=== PATIENT | male | born 1950 | race Caucasian/White ===

== ENCOUNTER → 2017-06-04 | Outpatient (CLI) | payer MEDICARE, OTHER ==
[~2017-06-04] VITALS: Ht 188 cm; Wt 127.0 kg
== END | disposition home or self-care (01) ==
LOC: Rad HDHVI 09:31
PROVIDERS: ATTEND Internal Medicine Cardiovascular Disease
DX: I10 Essential (primary) hypertension (principal); E78.00 Pure hypercholesterolemia, unspecified; E11.9 Type 2 diabetes mellitus without complications; Z82.49 Family history of ischemic heart disease and other diseases of the circulatory system
CPT/HCPCS: 78452; 93017; 93306; 96374; A9500

== ENCOUNTER → 2017-12-31 | Outpatient (CLI) | payer MEDICARE, OTHER ==
[~2017-12-31] MED LIST: ASPI-264 PO; CHOL20007 PO; CLOP75TA28 PO; COEN100C15 PO; DEXL60CA3 PO; IRBE300T26 PO; METF-370 PO; NEBI5TAB2 PO; OMEG1CAP59 PO
[2017-12-31 12:36] LABS: Basophils # (auto) 0.1 uL; Basophils % (auto) 0.9 % (0.0-2.0); Eosinophils # (auto) 0.1 uL; Eosinophils % (auto) 2.5 % (0.0-7.0); Hematocrit 48.8 % (41.0-53.0); Hemoglobin 16.6 g/dL (13.5-17.5); Lymphocytes # (auto) 1.4 uL; Lymphocytes % (auto) 23.1 % (10.0-50.0); Mean Corpuscular Hemoglobin 31.9 pg (28.0-32.0); Mean Corpuscular Volume 93.8 fL (80.0-100.0); Monocytes # (auto) 0.7 uL; Neutrophils # (auto) 3.7 uL; Neutrophils % (auto) 62.5 % (37.0-80.0); Nucleated Red Blood Cells % 1.5 %; Platelet Count (auto) 181 10^3/uL (140-450); Red Blood Cells 5.21 10^6/uL (4.5-5.90); Red Cell Distribution Width 15.5 % (11.8-14.3); White Blood Cell 5.9 10^3/uL (4.4-10.8)
[2017-12-31 12:44] LABS: Urine Blood Negative /uL (Negative); Urine Specific Gravity 1.009 (1.001-1.035)
[2017-12-31 13:18] LABS: BUN/Creatinine Ratio 19.4; Bilirubin, Direct 0.1 mg/dL (0-0.2); Bilirubin, Total 0.6 mg/dL (0.2-1.0); Calcium 9.4 mg/dL (8.5-10.1); Potassium 4.2 mmol/L (3.5-5.1); Total Protein 8.8 g/dL (6.4-8.2)
[2017-12-31 20:13] LABS: Prostate Specific Antigen 1.62 ng/mL (0.0-4.0)
[2017-12-31 20:25] LABS: Free T4 (Free Thyroxine) 1.04 ng/dL (0.89-1.76)
== END | disposition home or self-care (01) ==
LOC: LAB 08:06
PROVIDERS: ATTEND Internal Medicine Cardiovascular Disease
DX: E78.00 Pure hypercholesterolemia, unspecified (principal); D64.9 Anemia, unspecified; E11.9 Type 2 diabetes mellitus without complications; E03.9 Hypothyroidism, unspecified; E55.9 Vitamin D deficiency, unspecified; R53.81 Other malaise; R97.20 Elevated prostate specific antigen [PSA]; D51.9 Vitamin B12 deficiency anemia, unspecified; N39.0 Urinary tract infection, site not specified; I10 Essential (primary) hypertension; K74.1 Hepatic sclerosis
CPT/HCPCS: 36415; 80048; 80061; 80076; 81003; 82306; 82607; 83036; 84153; 84403; 84439; 84443; 85025

== ENCOUNTER → 2018-01-08 | Outpatient (CLI) | payer MEDICARE, OTHER ==
[2018-01-08 10:05] VITALS: BP 147/85
[2018-01-08 10:30] VITALS: BP 140/84
[2018-01-08 12:08] LABS: Basophils # (auto) 0 uL; Basophils % (auto) 0.8 % (0.0-2.0); Eosinophils # (auto) 0.1 uL; Hematocrit 49.9 % (41.0-53.0); Hemoglobin 16.8 g/dL (13.5-17.5); Lymphocytes # (auto) 1.3 uL; Lymphocytes % (auto) 21.8 % (10.0-50.0); Mean Corpuscular Hemoglobin 31.8 pg (28.0-32.0); Mean Corpuscular Hgb Conc. 33.6 g/dL (32.0-36.0); Mean Corpuscular Volume 94.5 fL (80.0-100.0); Monocytes # (auto) 0.6 uL; Monocytes % (auto) 10.8 % (0.0-12.0); Neutrophils # (auto) 3.9 uL; Neutrophils % (auto) 64.6 % (37.0-80.0); Nucleated Red Blood Cells % 0.8 %; Platelet Count (auto) 164 10^3/uL (140-450); Red Blood Cells 5.28 10^6/uL (4.5-5.90); Red Cell Distribution Width 15.3 % (11.8-14.3)
[2018-01-08 12:14] LABS: INR 1.01 (0.9-1.15); Partial Thromboplastin Time 30.5 sec (22.64-33.71)
[2018-01-08 12:37] LABS: Potassium 3.9 mmol/L (3.5-5.1)
[2018-01-08 12:38] LABS: Calcium 8.8 mg/dL (8.5-10.1)
== END | disposition home or self-care (01) ==
LOC: Rad HDHVI 09:45
PROVIDERS: ATTEND Internal Medicine Cardiovascular Disease
DX: Z01.818 Encounter for other preprocedural examination (principal); I10 Essential (primary) hypertension; D64.9 Anemia, unspecified; R79.1 Abnormal coagulation profile
CPT/HCPCS: 36415; 71046; 80048; 85025; 85610; 85730; 93005; G0463

== ENCOUNTER 2018-01-12 10:40 | Inpatient (IN) | payer MEDICARE, OTHER ==
[~2018-01-12] VITALS: Ht 188 cm; Wt 131.0 kg
[~2018-01-12 10:40] MED LIST changes: -CHOL20007 PO
[2018-01-12] MEDS ORDERED: IOHEXOL 350 MG/ML 100ML IJ ONE (11:14)
[2018-01-12] MEDS ORDERED: LIDOCAINE HCL 2 %PF INJ 10ML AMP IJ ONE ×2 (11:16)
[2018-01-12] MEDS ORDERED: fentaNYL CITRATE 100 MCG/2 ML VL ONE (12:27)
[2018-01-12] MEDS ORDERED: ANGIOMAX 250 MG VIAL IV ONE (12:27)
[2018-01-12] MEDS ORDERED: MIDAZOLAM HCL 1MG/1ML-2 ML VIAL ONE (12:27)
[2018-01-12] MEDS ORDERED: SODIUM CHL 0.9% 0 ML ONE (12:27)
[2018-01-12] MEDS ORDERED: HEPARIN SODIUM (PORCINE) 5000 UNITS/ML 1ML VIAL ONE (13:08)
[2018-01-12] MEDS ORDERED: HEPARIN DRIP/D5W 100UNITS/ML 250 ML IV SCH (13:18)
[2018-01-12] MEDS ORDERED: ONDANSETRON HCL 4 MG/2 ML VIAL IV PRN (13:45)
[2018-01-12] MEDS ORDERED: NITROGLYCERIN 0.4 MG SL TAB SL PRN (13:45)
[2018-01-12] MEDS ORDERED: MORPHINE SULFATE 4 MG/ML SYR/VIAL IV PRN (13:45)
[2018-01-12] MEDS ORDERED: ACETAMINOPHEN 500 MG TAB PO PRN (13:45)
[2018-01-12] MEDS ORDERED: HYDROcodone-ACET 5/325MG TAB PO PRN (13:45)
[2018-01-12 14:01] LABS: Basophils # (auto) 0.1 uL; Basophils % (auto) 1.2 % (0.0-2.0); Eosinophils # (auto) 0.2 uL; Eosinophils % (auto) 2.2 % (0.0-7.0); Hematocrit 46.9 % (41.0-53.0); Lymphocytes # (auto) 1.5 uL; Lymphocytes % (auto) 21.2 % (10.0-50.0); Mean Corpuscular Hgb Conc. 34.1 g/dL (32.0-36.0); Monocytes # (auto) 0.7 uL; Monocytes % (auto) 9.9 % (0.0-12.0); Neutrophils # (auto) 4.6 uL; Neutrophils % (auto) 65.5 % (37.0-80.0); Nucleated Red Blood Cells % 0.2 %; Platelet Count (auto) 151 10^3/uL (140-450); Red Blood Cells 4.99 10^6/uL (4.5-5.90); Red Cell Distribution Width 14.9 % (11.8-14.3)
[2018-01-12] MEDS ORDERED: HEPARIN DRIP/D5W 100UNITS/ML 250 ML IV ONE (14:08)
[2018-01-12] MEDS: SODIUM CHLOR 0.9% PF (SALINE LOCK) 10ML VIAL IV SCH ×2 (14:16→22:28)
[2018-01-12 14:23] LABS: INR 1.05 (0.9-1.15); Prothrombin Time 11.5 sec (9.37-12.3)
[2018-01-12 14:26] LABS: Partial Thromboplastin Time 77.9 sec (22.64-33.71)
[2018-01-12 17:00] VITALS: BP 129/75
[2018-01-12] MEDS ORDERED: DEXTROSE (50%) 50ML SYRG IV PRN (18:15)
[2018-01-12 20:11] LABS: INR 1.01 (0.9-1.15); Partial Thromboplastin Time 35.9 sec (22.64-33.71)
[2018-01-12] MEDS: HEPARIN DRIP/D5W 100UNITS/ML 250 ML IV SCH (20:29)
[2018-01-12 21:40] VITALS: BP 115/69
[2018-01-12] MEDS: InsuLIN REG 1unit/0.01ml Soln (100units/ml) SC SCH (22:00)
[2018-01-12] MEDS: ACCU-CHEK COMFORT CURVE STRIP VI SCH (22:28)
[2018-01-13 03:32] LABS: INR 0.98 (0.9-1.15); Partial Thromboplastin Time 39.8 sec (22.64-33.71); Prothrombin Time 10.7 sec (9.37-12.3)
[2018-01-13 05:30] VITALS: BP 112/71
[2018-01-13] MEDS: InsuLIN REG 1unit/0.01ml Soln (100units/ml) SC SCH ×4 (05:41→21:21)
[2018-01-13] MEDS: ACCU-CHEK COMFORT CURVE STRIP VI SCH ×4 (05:41→21:22)
[2018-01-13] MEDS: SODIUM CHLOR 0.9% PF (SALINE LOCK) 10ML VIAL IV SCH ×3 (05:41→21:21)
[2018-01-13 09:00] VITALS: BP 114/64
[2018-01-13] MEDS: LOSARTAN POTASSIUM 50 MG TAB PO SCH (09:34)
[2018-01-13] MEDS: PANTOPRAZOLE 40 MG TAB PO SCH (09:34)
[2018-01-13] MEDS ORDERED: PATIENTS OWN MEDICATION (Dexlansoprazole (Dexilant) 60 MG) PO SCH (10:00)
[2018-01-13] MEDS ORDERED: IRBESARTAN PO SCH (10:00)
[2018-01-13 10:05] LABS: INR 1.02 (0.9-1.15); Partial Thromboplastin Time 45.2 sec (22.64-33.71); Prothrombin Time 11.1 sec (9.37-12.3)
[2018-01-13 13:00] VITALS: BP 132/73
[2018-01-13 17:05] VITALS: BP 115/63
[2018-01-13] MEDS: HEPARIN DRIP/D5W 100UNITS/ML 250 ML IV SCH ×2 (17:30→19:09)
[2018-01-13 18:30] LABS: Partial Thromboplastin Time 30.2 sec (22.64-33.71); Prothrombin Time 10.9 sec (9.37-12.3)
[2018-01-13] MEDS ORDERED: HEPARIN SODIUM (PORCINE) 5000 UNITS/ML 1ML VIAL IV ONE (18:55)
[2018-01-13 22:00] VITALS: BP 119/71
[2018-01-14 01:10] LABS: INR 1.02 (0.9-1.15); Partial Thromboplastin Time 63.6 sec (22.64-33.71); Prothrombin Time 11.1 sec (9.37-12.3)
[2018-01-14 04:52] VITALS: BP 114/62
[2018-01-14 05:28] LABS: Basophils # (auto) 0 uL; Basophils % (auto) 0.7 % (0.0-2.0); Eosinophils # (auto) 0.2 uL; Eosinophils % (auto) 2.8 % (0.0-7.0); Hematocrit 48.9 % (41.0-53.0); Hemoglobin 16.6 g/dL (13.5-17.5); Lymphocytes # (auto) 1.5 uL; Lymphocytes % (auto) 21.7 % (10.0-50.0); Mean Corpuscular Hgb Conc. 33.8 g/dL (32.0-36.0); Mean Corpuscular Volume 94.5 fL (80.0-100.0); Monocytes # (auto) 0.8 uL; Monocytes % (auto) 11.8 % (0.0-12.0); Neutrophils # (auto) 4.4 uL; Nucleated Red Blood Cells % 0.1 %; Platelet Count (auto) 158 10^3/uL (140-450); Red Blood Cells 5.18 10^6/uL (4.5-5.90)
[2018-01-14 05:41] LABS: INR 1.04 (0.9-1.15); Partial Thromboplastin Time 56.2 sec (22.64-33.71); Prothrombin Time 11.3 sec (9.37-12.3)
[2018-01-14] MEDS: SODIUM CHLOR 0.9% PF (SALINE LOCK) 10ML VIAL IV SCH ×3 (05:42→21:50)
[2018-01-14 05:50] LABS: Calcium 8.7 mg/dL (8.5-10.1); Potassium 3.9 mmol/L (3.5-5.1)
[2018-01-14] MEDS: InsuLIN REG 1unit/0.01ml Soln (100units/ml) SC SCH ×4 (06:41→21:50)
[2018-01-14] MEDS: ACCU-CHEK COMFORT CURVE STRIP VI SCH ×4 (06:42→21:50)
[2018-01-14] MEDS: HEPARIN DRIP/D5W 100UNITS/ML 250 ML IV SCH (08:57)
[2018-01-14 09:00] VITALS: BP 124/73
[2018-01-14] MEDS: LOSARTAN POTASSIUM 50 MG TAB PO SCH (10:10)
[2018-01-14] MEDS: PANTOPRAZOLE 40 MG TAB PO SCH (10:11)
[2018-01-14 12:23] LABS: INR 1.03 (0.9-1.15); Partial Thromboplastin Time 57.9 sec (22.64-33.71); Prothrombin Time 11.2 sec (9.37-12.3)
[2018-01-14 13:00] VITALS: BP 128/70
[2018-01-14] MEDS ORDERED: CHOL20007 PO (13:19)
[2018-01-14 22:00] VITALS: BP 104/63
[2018-01-15] MEDS: HEPARIN DRIP/D5W 100UNITS/ML 250 ML IV SCH (00:08)
[2018-01-15 05:00] VITALS: BP 105/67
[2018-01-15] MEDS: SODIUM CHLOR 0.9% PF (SALINE LOCK) 10ML VIAL IV SCH ×3 (06:30→22:18)
[2018-01-15] MEDS: ACCU-CHEK COMFORT CURVE STRIP VI SCH ×4 (06:31→22:18)
[2018-01-15] MEDS: InsuLIN REG 1unit/0.01ml Soln (100units/ml) SC SCH ×4 (06:31→22:00)
[2018-01-15 09:00] VITALS: BP 129/80
[2018-01-15] MEDS: LOSARTAN POTASSIUM 50 MG TAB PO SCH (10:04)
[2018-01-15] MEDS: PANTOPRAZOLE 40 MG TAB PO SCH (10:04)
[2018-01-15 12:41] LABS: INR 1.02 (0.9-1.15); Partial Thromboplastin Time 54.7 sec (22.64-33.71); Prothrombin Time 11.1 sec (9.37-12.3)
[2018-01-15 13:00] VITALS: BP 142/81
[2018-01-15 17:00] VITALS: BP 125/77
[2018-01-15 22:00] VITALS: BP 117/68
[2018-01-16 06:09] VITALS: BP 115/66
[2018-01-16] MEDS: ACCU-CHEK COMFORT CURVE STRIP VI SCH ×4 (06:34→21:30)
[2018-01-16] MEDS: SODIUM CHLOR 0.9% PF (SALINE LOCK) 10ML VIAL IV SCH ×3 (06:34→22:00)
[2018-01-16] MEDS: InsuLIN REG 1unit/0.01ml Soln (100units/ml) SC SCH ×4 (06:34→21:30)
[2018-01-16] MEDS: HEPARIN DRIP/D5W 100UNITS/ML 250 ML IV SCH ×2 (06:48→21:24)
[2018-01-16 09:00] VITALS: BP 111/71
[2018-01-16] MEDS: PANTOPRAZOLE 40 MG TAB PO SCH (09:52)
[2018-01-16] MEDS: LOSARTAN POTASSIUM 50 MG TAB PO SCH (09:52)
[2018-01-16 13:00] VITALS: BP 140/80
[2018-01-16 13:50] LABS: INR 1.04 (0.9-1.15); Partial Thromboplastin Time 68.6 sec (22.64-33.71); Prothrombin Time 11.3 sec (9.37-12.3)
[2018-01-16 17:00] VITALS: BP 114/84
[2018-01-16] MEDS: FERROUS SULFATE 325 MG TAB PO SCH (17:41)
[2018-01-16 22:00] VITALS: BP 131/75
[2018-01-17 05:00] VITALS: BP 119/70
[2018-01-17] MEDS: SODIUM CHLOR 0.9% PF (SALINE LOCK) 10ML VIAL IV SCH ×3 (06:00→22:18)
[2018-01-17 06:38] LABS: Basophils # (auto) 0.1 uL; Basophils % (auto) 0.9 % (0.0-2.0); Eosinophils # (auto) 0.1 uL; Eosinophils % (auto) 2.2 % (0.0-7.0); Hemoglobin 16.4 g/dL (13.5-17.5); Lymphocytes # (auto) 1.7 uL; Lymphocytes % (auto) 25.1 % (10.0-50.0); Mean Corpuscular Hemoglobin 32.3 pg (28.0-32.0); Mean Corpuscular Hgb Conc. 34.2 g/dL (32.0-36.0); Mean Corpuscular Volume 94.5 fL (80.0-100.0); Monocytes # (auto) 0.8 uL; Monocytes % (auto) 12.2 % (0.0-12.0); Neutrophils # (auto) 4.1 uL; Neutrophils % (auto) 59.6 % (37.0-80.0); Nucleated Red Blood Cells % 0.1 %; Platelet Count (auto) 147 10^3/uL (140-450); Red Blood Cells 5.08 10^6/uL (4.5-5.90); White Blood Cell 6.8 10^3/uL (4.4-10.8)
[2018-01-17] MEDS: ACCU-CHEK COMFORT CURVE STRIP VI SCH ×4 (06:41→22:18)
[2018-01-17] MEDS: InsuLIN REG 1unit/0.01ml Soln (100units/ml) SC SCH ×4 (06:41→22:00)
[2018-01-17 07:12] LABS: Albumin 3.7 g/dL (3.4-5.0); BUN/Creatinine Ratio 17.3; Bilirubin, Total 0.6 mg/dL (0.2-1.0); Calcium 8.5 mg/dL (8.5-10.1); Potassium 3.9 mmol/L (3.5-5.1)
[2018-01-17] MEDS: FERROUS SULFATE 325 MG TAB PO SCH ×2 (08:10→18:08)
[2018-01-17 09:10] VITALS: BP 114/75
[2018-01-17] MEDS: LOSARTAN POTASSIUM 50 MG TAB PO SCH (09:57)
[2018-01-17] MEDS: PANTOPRAZOLE 40 MG TAB PO SCH (09:57)
[2018-01-17] MEDS: HEPARIN DRIP/D5W 100UNITS/ML 250 ML IV SCH (11:12)
[2018-01-17 11:43] LABS: INR 1.03 (0.9-1.15); Partial Thromboplastin Time 60.1 sec (22.64-33.71); Prothrombin Time 11.2 sec (9.37-12.3)
[2018-01-17 13:00] VITALS: BP 127/83
[2018-01-17 17:08] VITALS: BP 127/75
[2018-01-17 22:24] VITALS: BP 105/72
[2018-01-18] MEDS: HEPARIN DRIP/D5W 100UNITS/ML 250 ML IV SCH ×2 (02:07→21:31)
[2018-01-18 05:26] VITALS: BP 104/70
[2018-01-18] MEDS: InsuLIN REG 1unit/0.01ml Soln (100units/ml) SC SCH ×4 (06:15→21:28)
[2018-01-18] MEDS: ACCU-CHEK COMFORT CURVE STRIP VI SCH ×4 (06:15→21:28)
[2018-01-18] MEDS: SODIUM CHLOR 0.9% PF (SALINE LOCK) 10ML VIAL IV SCH ×3 (06:15→21:27)
[2018-01-18 08:00] VITALS: BP 126/77
[2018-01-18 08:11] LABS: Basophils # (auto) 0.1 uL; Basophils % (auto) 0.8 % (0.0-2.0); Eosinophils # (auto) 0.2 uL; Eosinophils % (auto) 2.5 % (0.0-7.0); Hematocrit 49.9 % (41.0-53.0); Hemoglobin 17.1 g/dL (13.5-17.5); Lymphocytes # (auto) 1.7 uL; Lymphocytes % (auto) 24.5 % (10.0-50.0); Mean Corpuscular Hemoglobin 32.3 pg (28.0-32.0); Mean Corpuscular Hgb Conc. 34.3 g/dL (32.0-36.0); Mean Corpuscular Volume 94.1 fL (80.0-100.0); Monocytes # (auto) 0.9 uL; Monocytes % (auto) 12.4 % (0.0-12.0); Neutrophils # (auto) 4.1 uL; Neutrophils % (auto) 59.8 % (37.0-80.0); Nucleated Red Blood Cells % 0.1 %; Platelet Count (auto) 162 10^3/uL (140-450); Red Cell Distribution Width 14.7 % (11.8-14.3); White Blood Cell 6.9 10^3/uL (4.4-10.8)
[2018-01-18] MEDS: FERROUS SULFATE 325 MG TAB PO SCH ×2 (08:11→19:08)
[2018-01-18 08:20] LABS: INR 1.05 (0.9-1.15); Partial Thromboplastin Time 67.8 sec (22.64-33.71); Prothrombin Time 11.5 sec (9.37-12.3)
[2018-01-18 08:36] LABS: Albumin 3.8 g/dL (3.4-5.0); BUN/Creatinine Ratio 17.8; Bilirubin, Total 0.6 mg/dL (0.2-1.0); Calcium 8.7 mg/dL (8.5-10.1); Total Protein 8.4 g/dL (6.4-8.2)
[2018-01-18] MEDS: PANTOPRAZOLE 40 MG TAB PO SCH (09:49)
[2018-01-18] MEDS: LOSARTAN POTASSIUM 50 MG TAB PO SCH (09:50)
[2018-01-18 10:33] LABS: Urine Bacteria NONE SEEN /hpf (None Seen); Urine Blood Negative /uL (Negative); Urine Specific Gravity 1.007 (1.001-1.035); Urine WBC None Seen /hpf (0 - 3)
[2018-01-18 12:00] VITALS: BP 134/73
[2018-01-18] MEDS ORDERED: LIDOCAINE HCL 2 %PF INJ 10ML AMP IJ ONE (15:11)
[2018-01-18] MEDS ORDERED: MIDAZOLAM HCL 1MG/1ML-2 ML VIAL ONE (15:24)
[2018-01-18] MEDS ORDERED: fentaNYL CITRATE 100 MCG/2 ML VL ONE (15:24)
[2018-01-18 15:39] LABS: INR 1.04 (0.9-1.15); Partial Thromboplastin Time 48.2 sec (22.64-33.71); Prothrombin Time 11.3 sec (9.37-12.3)
[2018-01-18] MEDS ORDERED: ASCORBIC ACID 500 MG TAB PO ONE (22:00)
[2018-01-19] VITALS (42 sets, daily range): BP systolic 20–143; BP diastolic 7–73
[2018-01-19] MEDS ORDERED: CHLORHEXIDINE 4% TOPICAL soln 237ML TOP ONE (01:14)
[2018-01-19] MEDS ORDERED: CHLORHEXIDINE 4% TOPICAL soln 118ML TOP ONE (02:30)
[2018-01-19 04:15] LABS: Basophils # (auto) 0 uL; Basophils % (auto) 0.6 % (0.0-2.0); Eosinophils # (auto) 0.1 uL; Eosinophils % (auto) 1.8 % (0.0-7.0); Hematocrit 49.5 % (41.0-53.0); Hemoglobin 16.7 g/dL (13.5-17.5); Lymphocytes # (auto) 1.7 uL; Lymphocytes % (auto) 22.7 % (10.0-50.0); Mean Corpuscular Hemoglobin 32.1 pg (28.0-32.0); Mean Corpuscular Hgb Conc. 33.7 g/dL (32.0-36.0); Mean Corpuscular Volume 95.1 fL (80.0-100.0); Monocytes # (auto) 0.9 uL; Monocytes % (auto) 11.5 % (0.0-12.0); Neutrophils # (auto) 4.9 uL; Neutrophils % (auto) 63.4 % (37.0-80.0); Platelet Count (auto) 152 10^3/uL (140-450); Red Blood Cells 5.21 10^6/uL (4.5-5.90); Red Cell Distribution Width 14.8 % (11.8-14.3); White Blood Cell 7.7 10^3/uL (4.4-10.8)
[2018-01-19 04:39] LABS: Calcium 8.4 mg/dL (8.5-10.1)
[2018-01-19] MEDS ORDERED: CHLORHEXIDINE 0.12% ORAL rinse 473ML MT ONE (06:00)
[2018-01-19] MEDS: SODIUM CHLOR 0.9% PF (SALINE LOCK) 10ML VIAL IV SCH (06:18)
[2018-01-19] MEDS ORDERED: VANCOMYCIN 1GM/250ML 250 ML IV ONE ×3 (06:25→07:30)
[2018-01-19] MEDS: ACCU-CHEK COMFORT CURVE STRIP VI SCH ×9 (06:47→22:56)
[2018-01-19] MEDS: InsuLIN REG 1unit/0.01ml Soln (100units/ml) SC SCH (06:48)
[2018-01-19] MEDS ORDERED: HEPARIN 1,000 UNITS/ml 1ML VIAL ONE (07:00)
[2018-01-19] MEDS ORDERED: ACCU-CHEK COMFORT CURVE STRIP VI ONE (07:00)
[2018-01-19] MEDS ORDERED: PAPAVERINE HCL 60 MG/2 ML 2ML VIAL ONE (07:00)
[2018-01-19] MEDS ORDERED: ceFAZolin 1GM VL ONE (07:00)
[2018-01-19] MEDS ORDERED: BACITRACIN INJ 50000 UNIT VIAL ONE ×2 (07:02→14:36)
[2018-01-19] MEDS ORDERED: MIDAZOLAM HCL 1MG/1ML-2 ML VIAL ONE (07:20)
[2018-01-19] MEDS ORDERED: fentaNYL CITRATE 100 MCG/2 ML VL ONE (07:20)
[2018-01-19] MEDS ORDERED: AZTREONAM 1GM INJ 1 GM in D5W 5% 50 ML IV ONE (07:30)
[2018-01-19] MEDS ORDERED: PLASMA-LYTE A pH7.4 8,000 ML INJ ONE (07:53)
[2018-01-19] MEDS ORDERED: AMINOCAPROIC ACID 5 GM in SODIUM CHL 0.9% 250 ML IV ONE (08:30)
[2018-01-19] MEDS ORDERED: NOREPINEPHRINE BITARTRATE IV ONE (08:30)
[2018-01-19] MEDS ORDERED: VASOPRESSIN 50 UNITS in SODIUM CHL 0.9% 247.5 ML IV ONE (08:30)
[2018-01-19] MEDS ORDERED: AMINOCAPROIC ACID 10 GM in SODIUM CHL 0.9% 100 ML IV ONE (08:30)
[2018-01-19] MEDS ORDERED: HEPARIN 30000 UNITS in SODIUM CHLORIDE 0.9% 1000 ML IV ONE (08:30)
[2018-01-19] MEDS ORDERED: D5W 5% IV ONE ×2 (08:30→13:29)
[2018-01-19] MEDS ORDERED: InsuLIN R (HUMAN) 100 UNITS in SODIUM CHL 0.9% 99 ML IV ONE (08:30)
[2018-01-19] MEDS ORDERED: EPINEPHrine HCL 4 MG in D5W 5% 250 ML IV ONE (08:30)
[2018-01-19] MEDS ORDERED: PHENYLEPHRINE INJ 20 MG in SODIUM CHL 0.9% 250 ML IV ONE (08:30)
[2018-01-19] MEDS ORDERED: D5W 5% 100 ML BAG IV ONE (13:29)
[2018-01-19] MEDS ORDERED: AMIODARONE IV ONE (13:29)
[2018-01-19] MEDS ORDERED: [UNRECOGNIZED DRUG - OTHER] IV ONE (13:29)
[2018-01-19] MEDS ORDERED: AMIODARONE HCL (50 MG/ ML) 3 ML VIAL IV ONE (13:29)
[2018-01-19] MEDS ORDERED: PHENYLEPHRINE IV ONE (13:29)
[2018-01-19 14:30] LABS: Basophils # (auto) 0.1 uL; Basophils % (auto) 0.5 % (0.0-2.0); Eosinophils # (auto) 0.1 uL; Eosinophils % (auto) 0.4 % (0.0-7.0); Hematocrit 37.8 % (41.0-53.0); Hemoglobin 12.7 g/dL (13.5-17.5); Lymphocytes # (auto) 2.4 uL; Lymphocytes % (auto) 10.7 % (10.0-50.0); Mean Corpuscular Hemoglobin 31.6 pg (28.0-32.0); Mean Corpuscular Hgb Conc. 33.6 g/dL (32.0-36.0); Monocytes # (auto) 1.6 uL; Neutrophils # (auto) 18.2 uL; Neutrophils % (auto) 81.4 % (37.0-80.0); Platelet Count (auto) 104 10^3/uL (140-450); Red Blood Cells 4.02 10^6/uL (4.5-5.90); Red Cell Distribution Width 14.6 % (11.8-14.3); White Blood Cell 22.4 10^3/uL (4.4-10.8)
[2018-01-19 14:40] LABS: Albumin 4.6 g/dL (3.4-5.0); BUN/Creatinine Ratio 12.6; Bilirubin, Total 1.1 mg/dL (0.2-1.0); Calcium 8.4 mg/dL (8.5-10.1); Total Protein 7.3 g/dL (6.4-8.2)
[2018-01-19 14:48] LABS: INR 2.33 (0.9-1.15)
[2018-01-19] MEDS ORDERED: INSULIN DRIP 100 UNIT/100ML 100 ML IV SCH (15:03)
[2018-01-19] MEDS ORDERED: NITROGLYCERIN 50MG/250ML 250 ML IV SCH (15:04)
[2018-01-19] MEDS: SODIUM CHLORIDE 0.9% 500 ML IV SCH ×2 (15:04→20:25)
[2018-01-19] MEDS: NICARDIPINE 25MG/250ML BAG KIT 250 ML IV SCH ×2 (15:04→20:04)
[2018-01-19] MEDS: PHENYLEPHRINE IV 250 ML IV SCH (15:04)
[2018-01-19 15:06] LABS: Partial Thromboplastin Time > 170.00 sec (22.64-33.71)
[2018-01-19] MEDS ORDERED: AMIODARONE HCL 900 MG in DEXTROSE 500 ML IV SCH (15:14)
[2018-01-19] MEDS ORDERED: ZOLPIDEM TARTRATE 5 MG TAB PO PRN (15:15)
[2018-01-19] MEDS ORDERED: ALBUMIN 5% 250 ML IV PRN (15:15)
[2018-01-19] MEDS ORDERED: DEXTROSE (50%) 50ML SYRG IV PRN (15:15)
[2018-01-19] MEDS ORDERED: CALCIUM GLUC 4.65meq/50ml D5AE 50 ML IV PRN (15:15)
[2018-01-19] MEDS ORDERED: METOCLOPRAMIDE HCL 5MG/ml INJ 2ml VIAL IV PRN (15:15)
[2018-01-19] MEDS ORDERED: ONDANSETRON HCL 4 MG/2 ML VIAL IV PRN (15:15)
[2018-01-19] MEDS ORDERED: ALBUMIN 25% 50 ML IV PRN (15:15)
[2018-01-19] MEDS ORDERED: AZTREONAM 1GM INJ 1 GM in D5W 5% 50 ML IV SCH (15:15)
[2018-01-19] MEDS ORDERED: SODIUM BICARBONATE 8.4% INJ 50ML SYRINGE IV PRN (15:15)
[2018-01-19] MEDS ORDERED: MORPHINE SULFATE 4 MG/ML SYR/VIAL IV PRN ×2 (15:15)
[2018-01-19] MEDS ORDERED: MAGNESIUM SULFATE 1GM/100ML 100 ML IV PRN (15:15)
[2018-01-19] MEDS ORDERED: FUROSEMIDE 20 MG/2 ML VIAL IV PRN (15:15)
[2018-01-19] MEDS ORDERED: AMIODARONE HCL 150 MG in D5W 5% 100 ML IV ONE (15:15)
[2018-01-19] MEDS: PROPOFOL 100 ML IV SCH ×2 (15:20→20:25)
[2018-01-19 15:51] LABS: Phosphorus 1.7 mg/dL (2.5-4.90)
[2018-01-19 15:57] LABS: Magnesium 5.5 mg/dL (1.6-2.6)
[2018-01-19] MEDS: SODIUM CHLORIDE 0.9% 1,000 ML IV SCH (16:00)
[2018-01-19 17:24] LABS: Basophils # (auto) 0.1 uL; Basophils % (auto) 0.5 % (0.0-2.0); Eosinophils # (auto) 0 uL; Eosinophils % (auto) 0.2 % (0.0-7.0); Hematocrit 41.8 % (41.0-53.0); Hemoglobin 14.2 g/dL (13.5-17.5); Lymphocytes # (auto) 0.6 uL; Lymphocytes % (auto) 3.5 % (10.0-50.0); Mean Corpuscular Hemoglobin 31.8 pg (28.0-32.0); Mean Corpuscular Hgb Conc. 33.9 g/dL (32.0-36.0); Mean Corpuscular Volume 93.9 fL (80.0-100.0); Monocytes # (auto) 1.4 uL; Neutrophils # (auto) 14.9 uL; Neutrophils % (auto) 87.8 % (37.0-80.0); Platelet Count (auto) 108 10^3/uL (140-450); Red Blood Cells 4.46 10^6/uL (4.5-5.90); Red Cell Distribution Width 14.6 % (11.8-14.3)
[2018-01-19 17:38] LABS: Albumin 4.8 g/dL (3.4-5.0); Calcium 8.4 mg/dL (8.5-10.1); Magnesium 3.7 mg/dL (1.6-2.6)
[2018-01-19] MEDS: VANCOMYCIN 1GM/250ML 250 ML IV SCH (17:39)
[2018-01-19 17:40] LABS: BUN/Creatinine Ratio 12.7; Bilirubin, Total 1.8 mg/dL (0.2-1.0); Total Protein 7.6 g/dL (6.4-8.2)
[2018-01-19] MEDS: IPRATROPIUM BROM 0.5 MG/2.5ML INH SOL NEB SCH ×2 (18:00→21:54)
[2018-01-19 18:06] LABS: INR 1.05 (0.9-1.15); Partial Thromboplastin Time 25.6 sec (22.64-33.71); Prothrombin Time 11.4 sec (9.37-12.3)
[2018-01-19] MEDS: POTASSIUM CHL 20MEQ/100ML 100 ML IV PRN (18:13)
[2018-01-19] MEDS: POTASSIUM CHL 20MEQ/100ML 100 ML IV SCH ×4 (18:15→22:56)
[2018-01-19] MEDS ORDERED: SODIUM BICARBONATE 8.4 % INJ 50ML VIAL IV ONE (18:34)
[2018-01-19] MEDS ORDERED: ADENOSINE 6 MG/2 ML INJ IV ONE (18:34)
[2018-01-19] MEDS ORDERED: MANNITOL 20 % (20GM/100ML) SOLN 500ML IV ONE (18:34)
[2018-01-19] MEDS ORDERED: POTASSIUM CHL 2MEQ/ML 20ML IV ONE (18:34)
[2018-01-19] MEDS ORDERED: PHENYLEPHRINE HCL 10 MG/ML VL IV ONE (18:34)
[2018-01-19] MEDS ORDERED: LIDOCAINE HCL 100 MG/5ML (2%) SYRG INJ IV ONE (18:34)
[2018-01-19] MEDS ORDERED: CALCIUM CHLOR(10%) 100MG/ML 10ML SYRINGE IV ONE (18:34)
[2018-01-19] MEDS ORDERED: DEXAMETHASONE SODIUM PHOSP 120 MG/30ml VIAL IV ONE (18:34)
[2018-01-19] MEDS ORDERED: AMINOCAPROIC ACID 5 GM/20 ML VL IV ONE (18:34)
[2018-01-19] MEDS: NOREPINEPHRINE 8 MG/250ML KIT 250 ML IV SCH (18:45)
[2018-01-19] MEDS ORDERED: fentaNYL Drip 2500mCg/250mlNS 250 ML IV SCH (19:30)
[2018-01-19] MEDS ORDERED: DOPamine 1600MCG/ML D5W 250 ML IV SCH (19:30)
[2018-01-19] MEDS ORDERED: fentaNYL Drip 2500mCg/250mlNS 250 ML IV ONE (20:24)
[2018-01-19] MEDS: AZTREONAM 1GM INJ 1 GM in D5W 5% 50 ML IV SCH (20:30)
[2018-01-19] MEDS: AMIODARONE HCL 900 MG in DEXTROSE 500 ML IV SCH (21:14)
[2018-01-19] MEDS: CHLORHEXIDINE 0.12% ORAL rinse 473ML MT SCH (21:43)
[2018-01-19] MEDS: ACETYLCYSTEINE 10 %(100MG/ML) SOL 4ML NEB SCH (21:54)
[2018-01-19] MEDS ORDERED: SODIUM PHOSPHATES 20 MEQ in SODIUM CHL 0.9% 100 ML IV ONE (22:15)
[2018-01-19 22:22] LABS: Basophils # (auto) 0.1 uL; Basophils % (auto) 0.4 % (0.0-2.0); Eosinophils # (auto) 0 uL; Hemoglobin 14.2 g/dL (13.5-17.5); Lymphocytes # (auto) 0.4 uL; Lymphocytes % (auto) 2.8 % (10.0-50.0); Mean Corpuscular Hemoglobin 32.1 pg (28.0-32.0); Mean Corpuscular Hgb Conc. 33.8 g/dL (32.0-36.0); Mean Corpuscular Volume 94.8 fL (80.0-100.0); Monocytes % (auto) 7.2 % (0.0-12.0); Neutrophils # (auto) 12.7 uL; Neutrophils % (auto) 89.6 % (37.0-80.0); Nucleated Red Blood Cells % 0.1 %; Platelet Count (auto) 110 10^3/uL (140-450); Red Blood Cells 4.43 10^6/uL (4.5-5.90); Red Cell Distribution Width 14.7 % (11.8-14.3); White Blood Cell 14.2 10^3/uL (4.4-10.8)
[2018-01-19 22:36] LABS: BUN/Creatinine Ratio 13.4; Calcium 8.5 mg/dL (8.5-10.1); Magnesium 3.4 mg/dL (1.6-2.6); Potassium 4.6 mmol/L (3.5-5.1)
[2018-01-19 22:46] LABS: Phosphorus 0.6 mg/dL (2.5-4.90)
[2018-01-20] VITALS (81 sets, daily range): BP systolic 1–140; BP diastolic 0–67
[2018-01-20] MEDS: NICARDIPINE 25MG/250ML BAG KIT 250 ML IV SCH ×5 (00:23→21:04)
[2018-01-20] MEDS: ACCU-CHEK COMFORT CURVE STRIP VI SCH ×17 (00:23→20:22)
[2018-01-20] MEDS: SODIUM CHLORIDE 0.9% 1,000 ML IV SCH ×2 (00:51→14:09)
[2018-01-20] MEDS: VANCOMYCIN 1GM/250ML 250 ML IV SCH ×2 (02:50→15:35)
[2018-01-20] MEDS: PROPOFOL 100 ML IV SCH (02:50)
[2018-01-20 04:19] LABS: Basophils # (auto) 0.1 uL; Basophils % (auto) 0.3 % (0.0-2.0); Eosinophils # (auto) 0 uL; Hematocrit 40.3 % (41.0-53.0); Hemoglobin 13.7 g/dL (13.5-17.5); Lymphocytes # (auto) 0.5 uL; Lymphocytes % (auto) 3.4 % (10.0-50.0); Mean Corpuscular Hemoglobin 31.9 pg (28.0-32.0); Mean Corpuscular Hgb Conc. 33.9 g/dL (32.0-36.0); Mean Corpuscular Volume 94.3 fL (80.0-100.0); Monocytes # (auto) 1.3 uL; Monocytes % (auto) 8.4 % (0.0-12.0); Neutrophils # (auto) 13.7 uL; Neutrophils % (auto) 87.9 % (37.0-80.0); Platelet Count (auto) 109 10^3/uL (140-450); Red Blood Cells 4.28 10^6/uL (4.5-5.90); Red Cell Distribution Width 14.8 % (11.8-14.3); White Blood Cell 15.6 10^3/uL (4.4-10.8)
[2018-01-20 04:36] LABS: BUN/Creatinine Ratio 15.2; Calcium 8.4 mg/dL (8.5-10.1); Magnesium 3.4 mg/dL (1.6-2.6); Phosphorus 2.2 mg/dL (2.5-4.90); Potassium 4.2 mmol/L (3.5-5.1)
[2018-01-20] MEDS: AZTREONAM 1GM INJ 1 GM in D5W 5% 50 ML IV SCH ×3 (05:00→20:21)
[2018-01-20] MEDS: ACETYLCYSTEINE 10 %(100MG/ML) SOL 4ML NEB SCH ×3 (05:47→21:45)
[2018-01-20] MEDS: IPRATROPIUM BROM 0.5 MG/2.5ML INH SOL NEB SCH ×6 (05:47→21:45)
[2018-01-20] MEDS: CHLORHEXIDINE 0.12% ORAL rinse 473ML MT SCH ×2 (10:00→22:20)
[2018-01-20] MEDS: PANTOPRAZOLE 40 MG/10 ML VIAL IV SCH (11:12)
[2018-01-20 14:11] LABS: Basophils # (auto) 0 uL; Basophils % (auto) 0.2 % (0.0-2.0); Eosinophils # (auto) 0 uL; Hematocrit 38.3 % (41.0-53.0); Hemoglobin 12.8 g/dL (13.5-17.5); Lymphocytes # (auto) 0.6 uL; Lymphocytes % (auto) 4.5 % (10.0-50.0); Mean Corpuscular Hgb Conc. 33.5 g/dL (32.0-36.0); Mean Corpuscular Volume 95.5 fL (80.0-100.0); Monocytes # (auto) 1.5 uL; Monocytes % (auto) 10.9 % (0.0-12.0); Neutrophils # (auto) 11.4 uL; Neutrophils % (auto) 84.4 % (37.0-80.0); Platelet Count (auto) 94 10^3/uL (140-450); Red Blood Cells 4.01 10^6/uL (4.5-5.90); White Blood Cell 13.5 10^3/uL (4.4-10.8)
[2018-01-20] MEDS: MORPHINE SULFATE 4 MG/ML SYR/VIAL IV PRN ×2 (14:58→18:18)
[2018-01-20] MEDS: PHENYLEPHRINE IV 250 ML IV SCH (15:04)
[2018-01-20 16:18] LABS: BUN/Creatinine Ratio 18.9; Calcium 7.5 mg/dL (8.5-10.1); Potassium 4.1 mmol/L (3.5-5.1)
[2018-01-20 16:19] LABS: Magnesium 2.9 mg/dL (1.6-2.6)
[2018-01-20] MEDS ORDERED: BISACODYL 10 MG RECT SUPP PR PRN (16:45)
[2018-01-20] MEDS ORDERED: DEXTROSE (50%) 50ML SYRG IV PRN (16:45)
[2018-01-20] MEDS ORDERED: MILK OF MAGNESIA 30ML SUSP PO PRN (16:45)
[2018-01-20] MEDS: NOREPINEPHRINE 8 MG/250ML KIT 250 ML IV SCH (18:19)
[2018-01-20] MEDS ORDERED: NITROGLYCERIN 0.4MG/HR TOPICAL PATCH TD ONE (18:20)
[2018-01-20] MEDS: NITROGLYCERIN 0.4MG/HR TOPICAL PATCH TD SCH (18:25)
[2018-01-20] MEDS: InsuLIN REG 1unit/0.01ml Soln (100units/ml) SC SCH (20:22)
[2018-01-20] MEDS: fentaNYL CITRATE 100 MCG/2 ML VL IV PRN (20:23)
[2018-01-20] MEDS: AMIODARONE HCL 900 MG in DEXTROSE 500 ML IV SCH (21:00)
[2018-01-20] MEDS: ATORVASTATIN 20 MG TAB PO SCH (22:20)
[2018-01-20] MEDS: ASCORBIC ACID 500 MG TAB PO SCH (22:20)
[2018-01-20] MEDS: SENNA 8.6 MG TAB PO PRN (22:21)
[2018-01-20] MEDS: DOCUSATE SOD 100 MG CAP PO SCH (22:21)
[2018-01-21] VITALS (58 sets, daily range): BP systolic 100–146; BP diastolic 47–107
[2018-01-21] MEDS: MORPHINE SULFATE 4 MG/ML SYR/VIAL IV PRN (00:30)
[2018-01-21] MEDS: AMIODARONE HCL 900 MG in DEXTROSE 500 ML IV SCH ×2 (01:20→14:27)
[2018-01-21] MEDS ORDERED: ALBUMIN 5% 250 ML IV ONE (01:24)
[2018-01-21] MEDS: IPRATROPIUM BROM 0.5 MG/2.5ML INH SOL NEB SCH ×6 (02:00→22:16)
[2018-01-21] MEDS: NICARDIPINE 25MG/250ML BAG KIT 250 ML IV SCH ×5 (02:04→22:04)
[2018-01-21] MEDS: SODIUM CHLORIDE 0.9% 1,000 ML IV SCH ×2 (02:26→11:32)
[2018-01-21] MEDS: fentaNYL CITRATE 100 MCG/2 ML VL IV PRN (02:30)
[2018-01-21] MEDS: VANCOMYCIN 1GM/250ML 250 ML IV SCH (03:24)
[2018-01-21 04:05] LABS: Basophils # (auto) 0 uL; Basophils % (auto) 0.2 % (0.0-2.0); Eosinophils # (auto) 0 uL; Hematocrit 36.3 % (41.0-53.0); Hemoglobin 12.2 g/dL (13.5-17.5); Lymphocytes # (auto) 1.2 uL; Lymphocytes % (auto) 8.5 % (10.0-50.0); Mean Corpuscular Hemoglobin 32.1 pg (28.0-32.0); Mean Corpuscular Hgb Conc. 33.7 g/dL (32.0-36.0); Mean Corpuscular Volume 95.5 fL (80.0-100.0); Monocytes # (auto) 1.4 uL; Monocytes % (auto) 10.3 % (0.0-12.0); Neutrophils # (auto) 11.3 uL; Platelet Count (auto) 86 10^3/uL (140-450); White Blood Cell 13.9 10^3/uL (4.4-10.8)
[2018-01-21] MEDS: AZTREONAM 1GM INJ 1 GM in D5W 5% 50 ML IV SCH ×2 (04:20→14:09)
[2018-01-21] MEDS: InsuLIN REG 1unit/0.01ml Soln (100units/ml) SC SCH ×6 (04:20→20:40)
[2018-01-21] MEDS: ACCU-CHEK COMFORT CURVE STRIP VI SCH ×6 (04:20→20:40)
[2018-01-21 04:34] LABS: BUN/Creatinine Ratio 21.1; Calcium 7.8 mg/dL (8.5-10.1); Magnesium 2.5 mg/dL (1.6-2.6)
[2018-01-21] MEDS: ACETYLCYSTEINE 10 %(100MG/ML) SOL 4ML NEB SCH ×3 (06:30→22:16)
[2018-01-21] MEDS ORDERED: KETOROLAC TROMETH 30 MG/ML 1ML VIAL IV PRN (07:30)
[2018-01-21] MEDS ORDERED: AMIODARONE HCL 150 MG in D5W 5% 100 ML IV ONE (07:30)
[2018-01-21] MEDS ORDERED: AMIODARONE HCL 900 MG in DEXTROSE 500 ML IV SCH (07:39)
[2018-01-21] MEDS: HYDROcodone-ACET 10/325MG TAB PO PRN ×3 (07:53→22:03)
[2018-01-21] MEDS: PANTOPRAZOLE 40 MG/10 ML VIAL IV SCH (09:22)
[2018-01-21] MEDS: ASPirin 81 mg TAB PO SCH (09:22)
[2018-01-21] MEDS: ASCORBIC ACID 500 MG TAB PO SCH ×2 (09:23→22:01)
[2018-01-21] MEDS: DOCUSATE SOD 100 MG CAP PO SCH ×2 (09:23→22:00)
[2018-01-21] MEDS: NITROGLYCERIN 0.4MG/HR TOPICAL PATCH TD SCH (09:23)
[2018-01-21] MEDS: CHLORHEXIDINE 0.12% ORAL rinse 473ML MT SCH ×2 (09:24→22:00)
[2018-01-21] MEDS ORDERED: METOPROLOL TARTRATE 25 MG TAB PO SCH ×2 (10:00)
[2018-01-21] MEDS: POTASSIUM CHL 20MEQ/100ML 100 ML IV PRN ×2 (11:39→14:27)
[2018-01-21] MEDS: PHENYLEPHRINE IV 250 ML IV SCH (14:55)
[2018-01-21] MEDS ORDERED: METOPROLOL SUCCINATE XL 50 MG TAB PO ONE (15:00)
[2018-01-21] MEDS: SODIUM CHLORIDE 0.9% 500 ML IV SCH (15:04)
[2018-01-21] MEDS: NOREPINEPHRINE 8 MG/250ML KIT 250 ML IV SCH (18:07)
[2018-01-21] MEDS: PROPRANOLOL HCL 1 MG/ML VIAL IV PRN (20:42)
[2018-01-21] MEDS ORDERED: METOPROLOL SUCCINATE XL 50 MG TAB PO SCH (22:00)
[2018-01-21] MEDS: ATORVASTATIN 20 MG TAB PO SCH (22:00)
[2018-01-22] VITALS (35 sets, daily range): BP systolic 113–148; BP diastolic 52–87
[2018-01-22] MEDS: ACCU-CHEK COMFORT CURVE STRIP VI SCH ×5 (01:00→22:00)
[2018-01-22] MEDS: InsuLIN REG 1unit/0.01ml Soln (100units/ml) SC SCH ×5 (01:00→21:39)
[2018-01-22] MEDS: IPRATROPIUM BROM 0.5 MG/2.5ML INH SOL NEB SCH ×6 (02:00→22:08)
[2018-01-22 04:07] LABS: Basophils # (auto) 0 uL; Basophils % (auto) 0.3 % (0.0-2.0); Eosinophils # (auto) 0.1 uL; Eosinophils % (auto) 0.7 % (0.0-7.0); Hematocrit 36.5 % (41.0-53.0); Hemoglobin 12.2 g/dL (13.5-17.5); Lymphocytes # (auto) 1.4 uL; Lymphocytes % (auto) 12.5 % (10.0-50.0); Mean Corpuscular Hemoglobin 31.9 pg (28.0-32.0); Mean Corpuscular Hgb Conc. 33.3 g/dL (32.0-36.0); Mean Corpuscular Volume 95.8 fL (80.0-100.0); Monocytes # (auto) 1.1 uL; Monocytes % (auto) 9.6 % (0.0-12.0); Neutrophils # (auto) 8.5 uL; Neutrophils % (auto) 76.9 % (37.0-80.0); Platelet Count (auto) 88 10^3/uL (140-450); Red Blood Cells 3.81 10^6/uL (4.5-5.90); Red Cell Distribution Width 14.6 % (11.8-14.3); White Blood Cell 11.1 10^3/uL (4.4-10.8)
[2018-01-22 04:28] LABS: BUN/Creatinine Ratio 24.7; Calcium 7.8 mg/dL (8.5-10.1); Magnesium 2.2 mg/dL (1.6-2.6); Potassium 4.1 mmol/L (3.5-5.1)
[2018-01-22] MEDS: ACETYLCYSTEINE 10 %(100MG/ML) SOL 4ML NEB SCH ×3 (06:38→22:00)
[2018-01-22] MEDS: SODIUM CHLORIDE 0.9% 1,000 ML IV SCH (08:45)
[2018-01-22] MEDS ORDERED: CALCIUM GLUC 4.65meq/50ml D5AE 50 ML IV ONE (09:00)
[2018-01-22] MEDS ORDERED: METOCLOPRAMIDE HCL 5MG/ml INJ 2ml VIAL IV PRN (09:00)
[2018-01-22] MEDS ORDERED: POTASSIUM CHL 20MEQ/100ML 100 ML IV PRN (09:00)
[2018-01-22] MEDS ORDERED: POTASSIUM CHL 20 Meq TABLET PO PRN (09:00)
[2018-01-22] MEDS ORDERED: ZOLPIDEM TARTRATE 5 MG TAB PO PRN (09:00)
[2018-01-22] MEDS ORDERED: MORPHINE SULFATE 4 MG/ML SYR/VIAL IV PRN ×2 (09:00)
[2018-01-22] MEDS ORDERED: DEXTROSE (50%) 50ML SYRG IV PRN (09:00)
[2018-01-22] MEDS ORDERED: hydrALAZINE HCL 20 MG/ML VL IV PRN ×2 (09:15)
[2018-01-22] MEDS: ASPirin 81 mg TAB PO SCH (10:51)
[2018-01-22] MEDS: DOCUSATE SOD 100 MG CAP PO SCH ×2 (10:51→21:30)
[2018-01-22] MEDS: PANTOPRAZOLE 40 MG/10 ML VIAL IV SCH (10:51)
[2018-01-22] MEDS: ASCORBIC ACID 500 MG TAB PO SCH ×2 (10:52→21:30)
[2018-01-22] MEDS: METOPROLOL TARTRATE 50 MG TAB PO SCH ×2 (10:52→21:30)
[2018-01-22] MEDS: POTASSIUM CHL 20 Meq TABLET PO SCH ×2 (10:52→21:30)
[2018-01-22] MEDS: NITROGLYCERIN 0.4MG/HR TOPICAL PATCH TD SCH (10:53)
[2018-01-22] MEDS: CHLORHEXIDINE 0.12% ORAL rinse 473ML MT SCH ×2 (10:54→21:38)
[2018-01-22] MEDS: Boost Glucose Control 8 Ounces PO SCH ×2 (12:00→18:29)
[2018-01-22] MEDS: fentaNYL CITRATE 100 MCG/2 ML VL IV PRN (12:26)
[2018-01-22] MEDS ORDERED: AMIODARONE HCL 200 MG TAB PO ONE (12:30)
[2018-01-22] MEDS: NICARDIPINE 25MG/250ML BAG KIT 250 ML IV SCH ×5 (12:32→23:04)
[2018-01-22] MEDS: AMIODARONE HCL 900 MG in DEXTROSE 500 ML IV SCH (13:39)
[2018-01-22] MEDS: SODIUM CHLORIDE 0.9% 500 ML IV SCH (15:04)
[2018-01-22] MEDS: FUROSEMIDE 40 MG TAB PO SCH (18:34)
[2018-01-22] MEDS: metFORMIN HYDROCHLORIDE 500 MG TAB PO SCH (18:34)
[2018-01-22] MEDS: SENNA 8.6 MG TAB PO PRN (21:29)
[2018-01-22] MEDS: ATORVASTATIN 20 MG TAB PO SCH (21:30)
[2018-01-22] MEDS: AMIODARONE HCL 200 MG TAB PO SCH (21:31)
[2018-01-22] MEDS: HYDROcodone-ACET 7.5/325MG TAB PO PRN (21:31)
[2018-01-23] VITALS (21 sets, daily range): BP systolic 116–163; BP diastolic 54–84
[2018-01-23] MEDS: IPRATROPIUM BROM 0.5 MG/2.5ML INH SOL NEB SCH ×6 (01:56→22:18)
[2018-01-23] MEDS: NICARDIPINE 25MG/250ML BAG KIT 250 ML IV SCH ×5 (04:04→23:28)
[2018-01-23] MEDS: InsuLIN REG 1unit/0.01ml Soln (100units/ml) SC SCH ×4 (05:39→22:00)
[2018-01-23] MEDS ORDERED: ACETYLCYSTEINE 20%(200MG/ML) SOL 4ML ONE (05:44)
[2018-01-23 06:01] LABS: Basophils # (auto) 0 uL; Basophils % (auto) 0.4 % (0.0-2.0); Eosinophils # (auto) 0.2 uL; Eosinophils % (auto) 1.7 % (0.0-7.0); Hematocrit 39.5 % (41.0-53.0); Hemoglobin 13.3 g/dL (13.5-17.5); Lymphocytes # (auto) 1.4 uL; Lymphocytes % (auto) 15.4 % (10.0-50.0); Mean Corpuscular Hgb Conc. 33.7 g/dL (32.0-36.0); Monocytes # (auto) 1.3 uL; Monocytes % (auto) 13.8 % (0.0-12.0); Neutrophils # (auto) 6.4 uL; Neutrophils % (auto) 68.7 % (37.0-80.0); Nucleated Red Blood Cells % 0.1 %; Platelet Count (auto) 107 10^3/uL (140-450); Red Blood Cells 4.16 10^6/uL (4.5-5.90); Red Cell Distribution Width 14.6 % (11.8-14.3); White Blood Cell 9.3 10^3/uL (4.4-10.8)
[2018-01-23 06:08] LABS: Potassium 4.1 mmol/L (3.5-5.1)
[2018-01-23 06:12] LABS: Albumin 3.3 g/dL (3.4-5.0); BUN/Creatinine Ratio 23.5; Calcium 8.7 mg/dL (8.5-10.1); Magnesium 2.1 mg/dL (1.6-2.6)
[2018-01-23 06:15] LABS: Bilirubin, Total 0.9 mg/dL (0.2-1.0); Total Protein 7.4 g/dL (6.4-8.2)
[2018-01-23] MEDS: ACETYLCYSTEINE 10 %(100MG/ML) SOL 4ML NEB SCH ×3 (06:28→22:18)
[2018-01-23] MEDS: ACCU-CHEK COMFORT CURVE STRIP VI SCH ×4 (06:32→22:00)
[2018-01-23] MEDS: FUROSEMIDE 40 MG TAB PO SCH ×2 (06:48→18:33)
[2018-01-23] MEDS: metFORMIN HYDROCHLORIDE 500 MG TAB PO SCH ×2 (06:49→18:33)
[2018-01-23] MEDS: Boost Glucose Control 8 Ounces PO SCH ×3 (08:00→18:00)
[2018-01-23] MEDS: HYDROcodone-ACET 7.5/325MG TAB PO PRN ×2 (08:11→20:53)
[2018-01-23] MEDS ORDERED: MAGNESIUM SULFATE 1GM/100ML 100 ML IV ONE (08:30)
[2018-01-23] MEDS: SODIUM CHLORIDE 0.9% 1,000 ML IV SCH (08:45)
[2018-01-23] MEDS: PANTOPRAZOLE 40 MG/10 ML VIAL IV SCH (09:38)
[2018-01-23] MEDS: ASCORBIC ACID 500 MG TAB PO SCH ×2 (09:39→20:53)
[2018-01-23] MEDS: METOPROLOL TARTRATE 50 MG TAB PO SCH ×2 (09:40→20:54)
[2018-01-23] MEDS: AMIODARONE HCL 200 MG TAB PO SCH ×2 (09:40→20:52)
[2018-01-23] MEDS: DOCUSATE SOD 100 MG CAP PO SCH ×2 (09:40→20:53)
[2018-01-23] MEDS: ASPirin 81 mg TAB PO SCH (09:40)
[2018-01-23] MEDS: POTASSIUM CHL 20 Meq TABLET PO SCH ×2 (09:40→20:52)
[2018-01-23] MEDS: CHLORHEXIDINE 0.12% ORAL rinse 473ML MT SCH ×4 (10:00→21:14)
[2018-01-23] MEDS: NITROGLYCERIN 0.4MG/HR TOPICAL PATCH TD SCH (11:00)
[2018-01-23] MEDS ORDERED: METOPROLOL TARTRATE 25 MG TAB PO ONE (11:00)
[2018-01-23] MEDS: AMIODARONE HCL 900 MG in DEXTROSE 500 ML IV SCH (13:39)
[2018-01-23] MEDS: SODIUM CHLORIDE 0.9% 500 ML IV SCH (15:04)
[2018-01-23] MEDS: ATORVASTATIN 20 MG TAB PO SCH (22:00)
[2018-01-24] VITALS (10 sets, daily range): BP systolic 108–129; BP diastolic 53–74
[2018-01-24] MEDS: IPRATROPIUM BROM 0.5 MG/2.5ML INH SOL NEB SCH ×6 (02:09→23:14)
[2018-01-24] MEDS: PROPRANOLOL HCL 1 MG/ML VIAL IV PRN (04:14)
[2018-01-24 04:38] LABS: Basophils # (auto) 0 uL; Basophils % (auto) 0.4 % (0.0-2.0); Eosinophils # (auto) 0.3 uL; Eosinophils % (auto) 2.4 % (0.0-7.0); Hemoglobin 13.5 g/dL (13.5-17.5); Lymphocytes # (auto) 1.6 uL; Lymphocytes % (auto) 14.7 % (10.0-50.0); Mean Corpuscular Hemoglobin 31.7 pg (28.0-32.0); Mean Corpuscular Hgb Conc. 33.8 g/dL (32.0-36.0); Monocytes # (auto) 1.5 uL; Monocytes % (auto) 14.3 % (0.0-12.0); Neutrophils # (auto) 7.2 uL; Neutrophils % (auto) 68.2 % (37.0-80.0); Platelet Count (auto) 137 10^3/uL (140-450); Red Blood Cells 4.26 10^6/uL (4.5-5.90); Red Cell Distribution Width 14.6 % (11.8-14.3); White Blood Cell 10.6 10^3/uL (4.4-10.8)
[2018-01-24 04:57] LABS: Calcium 8.5 mg/dL (8.5-10.1); Magnesium 1.8 mg/dL (1.6-2.6)
[2018-01-24 05:24] LABS: BUN/Creatinine Ratio 23.8; Bilirubin, Total 0.9 mg/dL (0.2-1.0); Total Protein 7.2 g/dL (6.4-8.2)
[2018-01-24] MEDS: FUROSEMIDE 40 MG TAB PO SCH ×2 (06:00→18:46)
[2018-01-24] MEDS: ACETYLCYSTEINE 10 %(100MG/ML) SOL 4ML NEB SCH ×3 (06:40→23:14)
[2018-01-24] MEDS: InsuLIN REG 1unit/0.01ml Soln (100units/ml) SC SCH ×3 (07:00→17:00)
[2018-01-24] MEDS: ACCU-CHEK COMFORT CURVE STRIP VI SCH ×3 (07:00→16:59)
[2018-01-24] MEDS: metFORMIN HYDROCHLORIDE 500 MG TAB PO SCH ×2 (07:04→18:46)
[2018-01-24] MEDS: PANTOPRAZOLE 40 MG/10 ML VIAL IV SCH (10:31)
[2018-01-24] MEDS: NITROGLYCERIN 0.4MG/HR TOPICAL PATCH TD SCH (10:32)
[2018-01-24] MEDS: ASCORBIC ACID 500 MG TAB PO SCH ×2 (10:32→22:02)
[2018-01-24] MEDS: DOCUSATE SOD 100 MG CAP PO SCH ×2 (10:33→22:01)
[2018-01-24] MEDS: AMIODARONE HCL 200 MG TAB PO SCH ×2 (10:33→22:01)
[2018-01-24] MEDS: HYDROcodone-ACET 7.5/325MG TAB PO PRN ×3 (10:33→22:02)
[2018-01-24] MEDS: METOPROLOL TARTRATE 50 MG TAB PO SCH ×2 (10:34→22:11)
[2018-01-24] MEDS: POTASSIUM CHL 20 Meq TABLET PO SCH ×2 (10:35→22:11)
[2018-01-24] MEDS: ASPirin 81 mg TAB PO SCH (10:35)
[2018-01-24] MEDS: Boost Glucose Control 8 Ounces PO SCH (18:00)
[2018-01-24] MEDS: ATORVASTATIN 20 MG TAB PO SCH (22:01)
[2018-01-24] MEDS ORDERED: ACETYLCYSTEINE 20%(200MG/ML) SOL 4ML ONE (22:02)
[2018-01-24] MEDS: CHLORHEXIDINE 0.12% ORAL rinse 473ML MT SCH (22:03)
[2018-01-25] MEDS: IPRATROPIUM BROM 0.5 MG/2.5ML INH SOL NEB SCH ×4 (02:16→14:49)
[2018-01-25 05:00] VITALS: BP 117/66
[2018-01-25] MEDS: ACETYLCYSTEINE 10 %(100MG/ML) SOL 4ML NEB SCH ×2 (06:00→14:00)
[2018-01-25] MEDS: FUROSEMIDE 40 MG TAB PO SCH ×2 (06:26→18:00)
[2018-01-25] MEDS: InsuLIN REG 1unit/0.01ml Soln (100units/ml) SC SCH ×3 (06:30→17:00)
[2018-01-25 06:43] LABS: Basophils # (auto) 0.1 uL; Basophils % (auto) 0.5 % (0.0-2.0); Eosinophils # (auto) 0.3 uL; Eosinophils % (auto) 2.5 % (0.0-7.0); Hemoglobin 13.4 g/dL (13.5-17.5); Lymphocytes # (auto) 1.3 uL; Mean Corpuscular Hemoglobin 32.4 pg (28.0-32.0); Mean Corpuscular Hgb Conc. 34.2 g/dL (32.0-36.0); Mean Corpuscular Volume 94.7 fL (80.0-100.0); Monocytes # (auto) 1.5 uL; Monocytes % (auto) 14.3 % (0.0-12.0); Neutrophils # (auto) 7.6 uL; Neutrophils % (auto) 70.7 % (37.0-80.0); Nucleated Red Blood Cells % 0.2 %; Platelet Count (auto) 174 10^3/uL (140-450); Red Blood Cells 4.12 10^6/uL (4.5-5.90); Red Cell Distribution Width 14.4 % (11.8-14.3); White Blood Cell 10.7 10^3/uL (4.4-10.8)
[2018-01-25 06:54] LABS: BUN/Creatinine Ratio 21.1; Calcium 8.8 mg/dL (8.5-10.1); Magnesium 1.8 mg/dL (1.6-2.6)
[2018-01-25 06:56] LABS: Bilirubin, Total 0.9 mg/dL (0.2-1.0); Total Protein 7.4 g/dL (6.4-8.2)
[2018-01-25] MEDS: ACCU-CHEK COMFORT CURVE STRIP VI SCH ×3 (07:01→17:00)
[2018-01-25] MEDS: metFORMIN HYDROCHLORIDE 500 MG TAB PO SCH ×2 (07:03→18:00)
[2018-01-25 08:40] VITALS: BP 131/72
[2018-01-25] MEDS: CHLORHEXIDINE 0.12% ORAL rinse 473ML MT SCH (10:00)
[2018-01-25] MEDS: PANTOPRAZOLE 40 MG/10 ML VIAL IV SCH (10:27)
[2018-01-25] MEDS: ASPirin 81 mg TAB PO SCH (10:27)
[2018-01-25] MEDS: DOCUSATE SOD 100 MG CAP PO SCH (10:28)
[2018-01-25] MEDS: POTASSIUM CHL 20 Meq TABLET PO SCH (10:28)
[2018-01-25] MEDS: ASCORBIC ACID 500 MG TAB PO SCH (10:29)
[2018-01-25] MEDS: METOPROLOL TARTRATE 50 MG TAB PO SCH (10:29)
[2018-01-25] MEDS: NITROGLYCERIN 0.4MG/HR TOPICAL PATCH TD SCH (10:30)
[2018-01-25] MEDS: AMIODARONE HCL 200 MG TAB PO SCH (10:31)
[2018-01-25] MEDS: HYDROcodone-ACET 7.5/325MG TAB PO PRN ×2 (10:32→17:44)
[2018-01-25] MEDS: Boost Glucose Control 8 Ounces PO SCH ×2 (10:35→14:30)
[2018-01-25 12:00] VITALS: BP 110/66
[2018-01-25 13:43] VITALS: BP 112/66
[2018-01-25 16:41] VITALS: BP 127/67
== END 2018-01-25 19:10 | disposition home or self-care (01) | DRG 229 ==
LOC: CATH 10:40 → TELE-WESTW 10:41 → ICU WEST 01-18 17:29 → TELE-CENTR 01-24 15:53
PROVIDERS: ADMIT Internal Medicine Cardiovascular Disease; ATTEND Internal Medicine Cardiovascular Disease
PROC: B41F1ZZ Fluoroscopy of Right Lower Extremity Arteries using Low Osmolar Contrast (ICD-10-PCS; 2018-01-12)
PROC: 4A023N7 Measurement of Cardiac Sampling and Pressure, Left Heart, Percutaneous Approach (ICD-10-PCS; 2018-01-12)
PROC: B2111ZZ Fluoroscopy of Multiple Coronary Arteries using Low Osmolar Contrast (ICD-10-PCS; 2018-01-12)
PROC: B2151ZZ Fluoroscopy of Left Heart using Low Osmolar Contrast (ICD-10-PCS; 2018-01-12)
PROC: B3151ZZ Fluoroscopy of Bilateral Common Carotid Arteries using Low Osmolar Contrast (ICD-10-PCS; 2018-01-12)
PROC: B3181ZZ Fluoroscopy of Bilateral Internal Carotid Arteries using Low Osmolar Contrast (ICD-10-PCS; 2018-01-12)
PROC: B31C1ZZ Fluoroscopy of Bilateral External Carotid Arteries using Low Osmolar Contrast (ICD-10-PCS; 2018-01-12)
PROC: 5A02210 Assistance with Cardiac Output using Balloon Pump, Continuous (ICD-10-PCS; 2018-01-18)
PROC: 02100Z9 Bypass Coronary Artery, One Artery from Left Internal Mammary, Open Approach (ICD-10-PCS; 2018-01-19)
PROC: 021309W Bypass Coronary Artery, Four or More Arteries from Aorta with Autologous Venous Tissue, Open Approach (ICD-10-PCS; 2018-01-19)
PROC: 06BP3ZZ Excision of Right Saphenous Vein, Percutaneous Approach (ICD-10-PCS; 2018-01-19)
PROC: 5A1221Z Performance of Cardiac Output, Continuous (ICD-10-PCS; 2018-01-19)
PROC: 02C00ZZ Extirpation of Matter from Coronary Artery, One Artery, Open Approach (ICD-10-PCS; principal; 2018-01-19 07:40)
PROC: 5A09357 Assistance with Respiratory Ventilation, Less than 24 Consecutive Hours, Continuous Positive Airway Pressure (ICD-10-PCS; 2018-01-20)
PROC: 5A09357 Assistance with Respiratory Ventilation, Less than 24 Consecutive Hours, Continuous Positive Airway Pressure (ICD-10-PCS; 2018-01-21)
DX: I25.110 Atherosclerotic heart disease of native coronary artery with unstable angina pectoris (principal); I48.91 Unspecified atrial fibrillation; E66.01 Morbid (severe) obesity due to excess calories; D75.1 Secondary polycythemia; J44.9 Chronic obstructive pulmonary disease, unspecified; E11.9 Type 2 diabetes mellitus without complications; E78.5 Hyperlipidemia, unspecified; I10 Essential (primary) hypertension; I25.5 Ischemic cardiomyopathy; Z68.37 Body mass index [BMI] 37.0-37.9, adult; Z82.49 Family history of ischemic heart disease and other diseases of the circulatory system; Z87.891 Personal history of nicotine dependence; Z71.3 Dietary counseling and surveillance; Y92.89 Other specified places as the place of occurrence of the external cause
CPT/HCPCS: 33967; 36224; 36227; 93458; G0278; 36415; 36600; 71045; 80048; 80053; 80061; 81001; 81025; 82805; 82962; 83036; 83735; 84100; 84132; 85025; 85576; 85610; 85730; 86850; 86900; 86901; 86920; 87070; 87081; 87205; 93005; 93970; 94002; 94003; 94060; 94640; 94660; 99152; C1751; C1768; C9113; J0153; J0610; J0690; J1100; J1642; J1644; J1815; J1885; J2250; J2440; J2704; J3480; J7060

== ENCOUNTER → 2018-03-17 | Outpatient (CLI) | payer MEDICARE, OTHER ==
[~2018-03-17] VITALS: Ht 188 cm; Wt 121.6 kg
[~2018-03-17] MED LIST changes: +CHOL20007 PO
[2018-03-17 12:15] VITALS: BP 110/73
[2018-03-17 13:00] VITALS: BP 110/70
== END | disposition home or self-care (01) ==
LOC: Rad HDHVI 10:03
PROVIDERS: ATTEND Internal Medicine Cardiovascular Disease
DX: I25.5 Ischemic cardiomyopathy (principal); I20.9 Angina pectoris, unspecified; R89.9 Unspecified abnormal finding in specimens from other organs, systems and tissues; I10 Essential (primary) hypertension; E11.9 Type 2 diabetes mellitus without complications; E78.5 Hyperlipidemia, unspecified; J44.9 Chronic obstructive pulmonary disease, unspecified; E03.9 Hypothyroidism, unspecified; Z87.891 Personal history of nicotine dependence
CPT/HCPCS: 78452; 87205; 93017; 96374; A9500; G0463

== ENCOUNTER → 2018-03-19 | Outpatient (CLI) | payer MEDICARE, OTHER ==
[2018-03-19 11:30] VITALS: BP 127/85
[2018-03-19 12:20] VITALS: BP_SYST 127; BP_SYST 130; BP_DIAS 77; BP_DIAS 85
== END | disposition home or self-care (01) ==
LOC: Rad HDHVI 10:00
PROVIDERS: ATTEND Internal Medicine Cardiovascular Disease
DX: J98.4 Other disorders of lung (principal); K80.20 Calculus of gallbladder without cholecystitis without obstruction; I20.9 Angina pectoris, unspecified; I25.5 Ischemic cardiomyopathy; J44.9 Chronic obstructive pulmonary disease, unspecified; E11.9 Type 2 diabetes mellitus without complications; I10 Essential (primary) hypertension; E78.5 Hyperlipidemia, unspecified; Z95.1 Presence of aortocoronary bypass graft; Z98.890 Other specified postprocedural states; Z87.891 Personal history of nicotine dependence
CPT/HCPCS: 71250; 93306; G0463

== ENCOUNTER → 2018-03-22 | Outpatient (CLI) | payer MEDICARE, OTHER ==
[2018-03-22 09:45] VITALS: BP_SYST 126; BP_SYST 131; BP_DIAS 82; BP_DIAS 86
[2018-03-22 10:10] VITALS: BP 126/86
== END | disposition home or self-care (01) ==
LOC: CHF HDHVI 10:04
PROVIDERS: ATTEND Internal Medicine Cardiovascular Disease
DX: E11.9 Type 2 diabetes mellitus without complications (principal); I10 Essential (primary) hypertension; E78.5 Hyperlipidemia, unspecified; Z87.891 Personal history of nicotine dependence
CPT/HCPCS: G0463

== ENCOUNTER → 2018-06-02 | Outpatient (CLI) | payer MEDICARE, BC ==
[~2018-06-02] MED LIST changes: +ASPI81TA27 PO; +TRAM50TA2 PO; +[UNRECOGNIZED DRUG - CODE] IV
[2018-06-02 11:43] LABS: INR 0.99 (0.9-1.15); Prothrombin Time 10.6 sec (9.27-12.13)
== END | disposition home or self-care (01) ==
LOC: LAB 10:32
PROVIDERS: ATTEND Specialist
DX: T81.4XXA Infection following a procedure, initial encounter (principal); I25.10 Atherosclerotic heart disease of native coronary artery without angina pectoris; I10 Essential (primary) hypertension; E11.9 Type 2 diabetes mellitus without complications; E03.9 Hypothyroidism, unspecified; E78.5 Hyperlipidemia, unspecified
CPT/HCPCS: 36415; 85610

== ENCOUNTER → 2018-06-02 | Outpatient (CLI) | payer MEDICARE, BC ==
[~2018-06-02] MED LIST changes: +LIDOCAINE 1% (LOCAL ANESTH.) PF 5ml SDV ID ONE; +SODIUM CHLOR 0.9% PF (SALINE LOCK) 10ML VIAL/SYR IV SCH
== END | disposition home or self-care (01) ==
LOC: XYW 12:34
PROVIDERS: ATTEND Specialist
DX: Z45.2 Encounter for adjustment and management of vascular access device (principal); Z80.0 Family history of malignant neoplasm of digestive organs; Z80.8 Family history of malignant neoplasm of other organs or systems; Z82.49 Family history of ischemic heart disease and other diseases of the circulatory system
CPT/HCPCS: 36415; 36569; 71045; 85610; C1751; J7050

== ENCOUNTER 2018-06-07 11:06 | Inpatient (IN) | payer MEDICARE, OTHER ==
[2018-06-04 10:29] LABS: Basophils # (auto) 0.1 uL; Eosinophils # (auto) 0.2 uL; Eosinophils % (auto) 2.3 % (0.0-7.0); Hematocrit 44.2 % (41.0-53.0); Lymphocytes # (auto) 1.4 uL; Lymphocytes % (auto) 18.5 % (10.0-50.0); Mean Corpuscular Hemoglobin 29.3 pg (28.0-32.0); Mean Corpuscular Hgb Conc. 33.9 g/dL (32.0-36.0); Mean Corpuscular Volume 86.6 fL (80.0-100.0); Monocytes # (auto) 0.8 uL; Neutrophils # (auto) 4.9 uL; Neutrophils % (auto) 67.2 % (37.0-80.0); Platelet Count (auto) 192 10^3/uL (140-450); Red Cell Distribution Width 16.5 % (11.8-14.3); White Blood Cell 7.3 10^3/uL (4.4-10.8)
[2018-06-04 10:38] LABS: Urine Bacteria NONE SEEN /hpf (None Seen); Urine Blood Negative /uL (Negative); Urine Specific Gravity 1.006 (1.001-1.035); Urine WBC <1 /hpf (0 - 3)
[2018-06-04 10:41] LABS: INR 0.96 (0.9-1.15); Partial Thromboplastin Time 28.9 sec (23.78-33.04); Prothrombin Time 10.3 sec (9.27-12.13)
[2018-06-04 10:44] LABS: Albumin 3.6 g/dL (3.4-5.0); BUN/Creatinine Ratio 22.2; Calcium 8.7 mg/dL (8.5-10.1); Potassium 4.1 mmol/L (3.5-5.1)
[2018-06-04 10:47] LABS: Bilirubin, Total 0.4 mg/dL (0.2-1.0); Total Protein 8.5 g/dL (6.4-8.2)
[~2018-06-07] VITALS: Ht 190.5 cm; Wt 131.9 kg
[~2018-06-07 11:06] MED LIST changes: -ASPI-264 PO; -DEXL60CA3 PO; -IRBE300T26 PO; -LIDOCAINE 1% (LOCAL ANESTH.) PF 5ml SDV ID ONE; -SODIUM CHLOR 0.9% PF (SALINE LOCK) 10ML VIAL/SYR IV SCH; -TRAM50TA2 PO
[2018-06-07] MEDS ORDERED: fentaNYL CITRATE 100 MCG/2 ML VL ONE ×2 (11:30→13:17)
[2018-06-07] MEDS ORDERED: MIDAZOLAM HCL 1MG/1ML-2 ML VIAL ONE (11:30)
[2018-06-07] MEDS ORDERED: PROPOFOL 100 ML IV ONE (11:31)
[2018-06-07] MEDS ORDERED: ROCURONIUM 10MG/ML 10ML VIAL IV ONE (11:31)
[2018-06-07] MEDS ORDERED: PHENYLEPHRINE HCL 10 MG/ML VL ONE (11:31)
[2018-06-07] MEDS ORDERED: ONDANSETRON HCL 4 MG/2 ML VIAL ONE (11:31)
[2018-06-07] MEDS ORDERED: SUCCINYLCHOLINE CHLORIDE 20 MG/ML 10ML VIAL IV ONE (11:49)
[2018-06-07] MEDS ORDERED: PROPOFOL 10 MG/ML 20 ML IV ONE (11:51)
[2018-06-07] MEDS ORDERED: DEXAMETHASONE SOD PHOS 4 MG/1ML SDV INJ ONE (12:23)
[2018-06-07] MEDS ORDERED: ceFAZolin 1GM VL ONE (12:56)
[2018-06-07] MEDS ORDERED: BACITRACIN INJ 50000 UNIT VIAL ONE (12:59)
[2018-06-07] MEDS ORDERED: MORPHINE SULFATE 4 MG/ML SYR/VIAL IV PRN (13:45)
[2018-06-07] MEDS ORDERED: ONDANSETRON HCL 4 MG/2 ML VIAL IV ONE (13:45)
[2018-06-07] MEDS ORDERED: LABETALOL HCL 5 MG/ML 4ML SYRINGE IV PRN (13:45)
[2018-06-07] MEDS ORDERED: METOCLOPRAMIDE HCL 5MG/ml INJ 2ml VIAL IV ONE (13:45)
[2018-06-07] MEDS ORDERED: diphenhdrAMINE HCL 50 MG/1 ML VL IV PRN (13:45)
[2018-06-07] MEDS: HYDROmorphone HCL 2 MG/ML VL IV PRN ×2 (14:18→14:23)
[2018-06-07] MEDS ORDERED: HYDROmorphone HCL 2 MG/ML VL IV PRN (15:15)
[2018-06-07 17:00] VITALS: BP 140/85
[2018-06-07] MEDS: metFORMIN HYDROCHLORIDE 500 MG TAB PO SCH (17:40)
[2018-06-07 20:00] VITALS: BP 121/72
[2018-06-07] MEDS ORDERED: VANCOMYCIN PER PHARMACY 0 MG IV SCH (20:00)
[2018-06-07] MEDS: VANCOMYCIN 1,500 MG in D5W 5% 250 ML IV SCH (21:56)
[2018-06-07 22:19] VITALS: BP 121/72
[2018-06-07] MEDS: SODIUM CHLOR 0.9% PF (SALINE LOCK) 10ML VIAL/SYR IV SCH (23:25)
[2018-06-08 05:55] VITALS: BP 127/77
[2018-06-08] MEDS: SODIUM CHLOR 0.9% PF (SALINE LOCK) 10ML VIAL/SYR IV SCH ×2 (06:37→14:00)
[2018-06-08 07:24] LABS: Basophils # (auto) 0.1 uL; Basophils % (auto) 0.7 % (0.0-2.0); Eosinophils # (auto) 0.1 uL; Eosinophils % (auto) 1.1 % (0.0-7.0); Hematocrit 40.7 % (41.0-53.0); Hemoglobin 13.8 g/dL (13.5-17.5); Lymphocytes # (auto) 1.5 uL; Lymphocytes % (auto) 17.2 % (10.0-50.0); Mean Corpuscular Hemoglobin 29.6 pg (28.0-32.0); Mean Corpuscular Volume 87.2 fL (80.0-100.0); Monocytes # (auto) 0.6 uL; Neutrophils # (auto) 6.3 uL; Platelet Count (auto) 184 10^3/uL (140-450); Red Blood Cells 4.67 10^6/uL (4.5-5.90); Red Cell Distribution Width 16.4 % (11.8-14.3); White Blood Cell 8.5 10^3/uL (4.4-10.8)
[2018-06-08 07:41] LABS: BUN/Creatinine Ratio 19.6; Calcium 8.5 mg/dL (8.5-10.1); Potassium 3.9 mmol/L (3.5-5.1)
[2018-06-08] MEDS: metFORMIN HYDROCHLORIDE 500 MG TAB PO SCH ×2 (08:05→19:00)
[2018-06-08 09:10] VITALS: BP 114/68
[2018-06-08] MEDS: VANCOMYCIN 1,500 MG in D5W 5% 250 ML IV SCH (09:12)
[2018-06-08] MEDS ORDERED: BYSTOLIC 5 MG PO SCH (10:00)
[2018-06-08] MEDS ORDERED: DEXILANT 60 MG PO SCH (10:00)
[2018-06-08 13:24] VITALS: BP 152/82
[2018-06-08] MEDS ORDERED: DEXTROSE (50%) 50ML SYRG IV PRN (14:30)
[2018-06-08] MEDS ORDERED: ACCU-CHEK COMFORT CURVE STRIP VI SCH (17:00)
[2018-06-08] MEDS ORDERED: InsuLIN REG 1unit/0.01ml Soln (100units/ml) SC SCH (17:00)
[2018-06-08] MEDS ORDERED: TRAM50TA2 PO (17:03)
[2018-06-08 17:53] VITALS: BP 137/74
[2018-06-08 19:44] VITALS: BP 128/80
[2018-06-08 20:26] VITALS: BP 128/80
== END 2018-06-08 20:45 | disposition home or self-care (01) | DRG 856 ==
LOC: SUR 11:06 → TELE-CENTR 11:07
PROVIDERS: ADMIT Internal Medicine Cardiovascular Disease; ATTEND Internal Medicine
PROC: 0PP004Z Removal of Internal Fixation Device from Sternum, Open Approach (ICD-10-PCS; principal; 2018-06-07 11:50)
DX: T81.4XXA Infection following a procedure, initial encounter (principal); J86.9 Pyothorax without fistula; T81.31XA Disruption of external operation (surgical) wound, not elsewhere classified, initial encounter; Y83.2 Surgical operation with anastomosis, bypass or graft as the cause of abnormal reaction of the patient, or of later complication, without mention of misadventure at the time of the procedure; E66.01 Morbid (severe) obesity due to excess calories; I10 Essential (primary) hypertension; I25.10 Atherosclerotic heart disease of native coronary artery without angina pectoris; M89.8X8 Other specified disorders of bone, other site; J44.9 Chronic obstructive pulmonary disease, unspecified; E11.9 Type 2 diabetes mellitus without complications; K21.9 Gastro-esophageal reflux disease without esophagitis; Y92.89 Other specified places as the place of occurrence of the external cause; Z68.36 Body mass index [BMI] 36.0-36.9, adult; Z95.1 Presence of aortocoronary bypass graft
CPT/HCPCS: 36415; 71045; 80048; 80053; 81001; 82962; 85025; 85610; 85730; 86850; 86900; 86901; 86920; 87070; 87075; 87205; J0330; J0690; J1100; J2250; J2405; J2704; J7060

== ENCOUNTER → 2018-07-21 | Outpatient (CLI) | payer MEDICARE, OTHER ==
[~2018-07-21] MED LIST changes: -CLOP75TA28 PO; +TRAM50TA2 PO; -[UNRECOGNIZED DRUG - CODE] IV
== END | disposition home or self-care (01) ==
LOC: LAB 15:48
PROVIDERS: ATTEND Thoracic Surgery (Cardiothoracic Vascular Surgery)
DX: R21 Rash and other nonspecific skin eruption (principal); I50.9 Heart failure, unspecified
CPT/HCPCS: 87075; 87205

== ENCOUNTER → 2018-08-11 | Outpatient (CLI) | payer MEDICARE, OTHER ==
[2018-08-11 15:12] LABS: Basophils # (auto) 0.1 uL; Basophils % (auto) 0.7 % (0.0-2.0); Eosinophils # (auto) 0.2 uL; Eosinophils % (auto) 2.1 % (0.0-7.0); Hematocrit 42.4 % (41.0-53.0); Hemoglobin 14.3 g/dL (13.5-17.5); Lymphocytes # (auto) 1.7 uL; Lymphocytes % (auto) 18.1 % (10.0-50.0); Mean Corpuscular Hemoglobin 29.8 pg (28.0-32.0); Mean Corpuscular Hgb Conc. 33.8 g/dL (32.0-36.0); Mean Corpuscular Volume 88.2 fL (80.0-100.0); Monocytes # (auto) 1.1 uL; Monocytes % (auto) 11.5 % (0.0-12.0); Neutrophils # (auto) 6.3 uL; Neutrophils % (auto) 67.6 % (37.0-80.0); Nucleated Red Blood Cells % 0.1 %; Platelet Count (auto) 260 10^3/uL (140-450); Red Blood Cells 4.81 10^6/uL (4.5-5.90); Red Cell Distribution Width 16.5 % (11.8-14.3); White Blood Cell 9.3 10^3/uL (4.4-10.8)
[2018-08-11 16:47] LABS: Albumin 3.4 g/dL (3.4-5.0); BUN/Creatinine Ratio 20.9; Bilirubin, Total 0.5 mg/dL (0.2-1.0); Calcium 9.4 mg/dL (8.5-10.1); Potassium 4.3 mmol/L (3.5-5.1); Total Protein 8.8 g/dL (6.4-8.2)
== END | disposition home or self-care (01) ==
LOC: XYW 14:17
PROVIDERS: ATTEND Internal Medicine Cardiovascular Disease
DX: M86.9 Osteomyelitis, unspecified (principal); M47.899 Other spondylosis, site unspecified; Z95.1 Presence of aortocoronary bypass graft
CPT/HCPCS: 36415; 71250; 80053; 85025; 87075; 87205

== ENCOUNTER → 2018-08-18 | Outpatient (CLI) | payer MEDICARE, OTHER | END | disposition home or self-care (01) | LOC: LAB 16:25 | PROVIDERS: ATTEND Thoracic Surgery (Cardiothoracic Vascular Surgery) | DX: T81.32XD Disruption of internal operation (surgical) wound, not elsewhere classified, subsequent encounter (principal); X58.XXXD Exposure to other specified factors, subsequent encounter | CPT/HCPCS: 87075; 87205 ==

== ENCOUNTER → 2018-08-25 | Outpatient (CLI) | payer MEDICARE, OTHER ==
[2018-08-25 16:34] LABS: Basophils # (auto) 0 uL; Basophils % (auto) 0.5 % (0.0-2.0); Eosinophils # (auto) 0.1 uL; Eosinophils % (auto) 1.6 % (0.0-7.0); Hematocrit 44.4 % (41.0-53.0); Hemoglobin 15.1 g/dL (13.5-17.5); Lymphocytes # (auto) 1.5 uL; Lymphocytes % (auto) 16.8 % (10.0-50.0); Mean Corpuscular Hgb Conc. 33.9 g/dL (32.0-36.0); Mean Corpuscular Volume 88.4 fL (80.0-100.0); Monocytes # (auto) 0.8 uL; Monocytes % (auto) 9.5 % (0.0-12.0); Neutrophils # (auto) 6.2 uL; Neutrophils % (auto) 71.6 % (37.0-80.0); Nucleated Red Blood Cells % 0.3 %; Platelet Count (auto) 198 10^3/uL (140-450); Red Blood Cells 5.02 10^6/uL (4.5-5.90); Red Cell Distribution Width 16.6 % (11.8-14.3); White Blood Cell 8.7 10^3/uL (4.4-10.8)
[2018-08-25 16:48] LABS: Albumin 3.7 g/dL (3.4-5.0); BUN/Creatinine Ratio 18.4; Bilirubin, Direct 0.2 mg/dL (0-0.2); Potassium 4.1 mmol/L (3.5-5.1)
[2018-08-25 16:51] LABS: Bilirubin, Total 0.5 mg/dL (0.2-1.0)
== END | disposition home or self-care (01) ==
LOC: LAB 13:50
PROVIDERS: ATTEND Internal Medicine Cardiovascular Disease
DX: I10 Essential (primary) hypertension (principal); E03.9 Hypothyroidism, unspecified; E11.9 Type 2 diabetes mellitus without complications; E55.9 Vitamin D deficiency, unspecified; C61 Malignant neoplasm of prostate; E29.1 Testicular hypofunction; D51.9 Vitamin B12 deficiency anemia, unspecified; K74.1 Hepatic sclerosis
CPT/HCPCS: 36415; 80048; 80061; 80076; 82306; 83036; 84153; 84403; 84443; 85025

== ENCOUNTER → 2018-12-15 | Outpatient (CLI) | payer MEDICARE, BC | END | disposition home or self-care (01) | LOC: Rad HDHVI 07:55 | PROVIDERS: ATTEND Internal Medicine Cardiovascular Disease | DX: I25.10 Atherosclerotic heart disease of native coronary artery without angina pectoris (principal); I11.0 Hypertensive heart disease with heart failure; I50.9 Heart failure, unspecified | CPT/HCPCS: 93306 ==

== ENCOUNTER → 2019-05-24 | Outpatient (CLI) | payer MEDICARE, BC ==
[~2019-05-24] MED LIST changes: +ADENOSINE 90 MG/30 ML INJ IV ONE; +ASPI-404 PO; -ASPI81TA27 PO
[2019-05-24 12:13] LABS: Basophils # (auto) 0.1 uL; Basophils % (auto) 0.7 % (0.0-2.0); Eosinophils # (auto) 0.2 uL; Eosinophils % (auto) 2.4 % (0.0-7.0); Hematocrit 43.1 % (41.0-53.0); Hemoglobin 14.9 g/dL (13.5-17.5); Lymphocytes # (auto) 1.1 uL; Lymphocytes % (auto) 15.7 % (10.0-50.0); Mean Corpuscular Hemoglobin 30.4 pg (28.0-32.0); Mean Corpuscular Hgb Conc. 34.5 g/dL (32.0-36.0); Mean Corpuscular Volume 88.1 fL (80.0-100.0); Monocytes # (auto) 0.6 uL; Monocytes % (auto) 8.6 % (0.0-12.0); Neutrophils # (auto) 5.1 uL; Neutrophils % (auto) 72.6 % (37.0-80.0); Nucleated Red Blood Cells % 0.5 %; Platelet Count (auto) 151 10^3/uL (140-450); Red Blood Cells 4.89 10^6/uL (4.5-5.90); Red Cell Distribution Width 15.5 % (11.8-14.3); White Blood Cell 7.1 10^3/uL (4.4-10.8)
[2019-05-24 12:35] LABS: Albumin 3.5 g/dL (3.4-5.0); Potassium 4.2 mmol/L (3.5-5.1)
[2019-05-24 12:36] LABS: Free T4 (Free Thyroxine) 0.71 ng/dL (0.89-1.76); Prostate Specific Antigen 1.32 ng/mL (0.0-4.0); Urine Blood 1+ /uL (Negative); Urine Specific Gravity 1.005 (1.001-1.035)
[2019-05-24 13:32] LABS: BUN/Creatinine Ratio 22.1; Bilirubin, Total 0.4 mg/dL (0.2-1.0); Calcium 9.1 mg/dL (8.5-10.1); Total Protein 8.4 g/dL (6.4-8.2)
== END | disposition home or self-care (01) ==
LOC: Rad HDHVI 08:18
PROVIDERS: ATTEND Internal Medicine Cardiovascular Disease
DX: E03.9 Hypothyroidism, unspecified (principal); K90.9 Intestinal malabsorption, unspecified; C61 Malignant neoplasm of prostate; E29.1 Testicular hypofunction; E11.9 Type 2 diabetes mellitus without complications; D51.9 Vitamin B12 deficiency anemia, unspecified; N39.0 Urinary tract infection, site not specified; I11.0 Hypertensive heart disease with heart failure; I50.23 Acute on chronic systolic (congestive) heart failure; J98.51 Mediastinitis; T81.49XA Infection following a procedure, other surgical site, initial encounter
CPT/HCPCS: 36415; 78452; 80053; 80061; 81003; 82306; 82607; 83036; 84153; 84403; 84439; 84443; 85025; 93005; 96374; 96375; A9500; J0153; J1642

== ENCOUNTER → 2019-06-21 | Outpatient (CLI) | payer MEDICARE, BC ==
[~2019-06-21] MED LIST changes: -ADENOSINE 90 MG/30 ML INJ IV ONE
== END | disposition home or self-care (01) ==
LOC: XY 07:32
PROVIDERS: ATTEND Internal Medicine Cardiovascular Disease
DX: J98.51 Mediastinitis (principal); M86.21 Subacute osteomyelitis, shoulder
CPT/HCPCS: 78315; A9503

== ENCOUNTER → 2020-04-09 | Outpatient (CLI) | payer MEDICARE, BC ==
[~2020-04-09] VITALS: Ht 190.5 cm; Wt 131.5 kg
[~2020-04-09] MED LIST changes: -ASPI-404 PO; +ASPI-543 PO
[2020-04-09 12:16] LABS: Urine Blood Negative /uL (Negative); Urine Specific Gravity 1.005 (1.001-1.035)
[2020-04-09 12:18] LABS: Basophils # (auto) 0.1 10 ^3/uL (0-0.2); Basophils % (auto) 0.9 % (0.0-2.0); Eosinophils # (auto) 0.2 10 ^3/uL (0-0.8); Eosinophils % (auto) 3.3 % (0.0-7.0); Hematocrit 43.6 % (41.0-53.0); Hemoglobin 14.9 g/dL (13.5-17.5); Lymphocytes # (auto) 1.5 10 ^3/uL (0.4-5.4); Lymphocytes % (auto) 20.5 % (10.0-50.0); Mean Corpuscular Hemoglobin 30.7 pg (28.0-32.0); Mean Corpuscular Hgb Conc. 34.2 g/dL (32.0-36.0); Mean Corpuscular Volume 89.9 fL (80.0-100.0); Monocytes # (auto) 0.7 10 ^3/uL (0-1.3); Monocytes % (auto) 9.9 % (0.0-12.0); Neutrophils # (auto) 4.7 10 ^3/uL (1.6-8.6); Neutrophils % (auto) 65.4 % (37.0-80.0); Nucleated Red Blood Cells % 0.6 %; Platelet Count (auto) 158 10^3/uL (140-450); Red Blood Cells 4.85 10^6/uL (4.5-5.90); Red Cell Distribution Width 16.9 % (11.8-14.3); White Blood Cell 7.1 10^3/uL (4.4-10.8)
[2020-04-09 12:30] LABS: Albumin 3.7 g/dL (3.4-5.0); Calcium 8.9 mg/dL (8.5-10.1); Potassium 4.4 mmol/L (3.5-5.1)
[2020-04-09 12:37] LABS: BUN/Creatinine Ratio 19.6; Bilirubin, Total 0.5 mg/dL (0.2-1.0); Total Protein 8.3 g/dL (6.4-8.2)
[2020-04-09 12:39] LABS: Free T4 (Free Thyroxine) 1.01 ng/dL (0.89-1.76)
[2020-04-09 12:42] LABS: Prostate Specific Antigen 2.49 ng/mL (0.0-4.0)
== END | disposition home or self-care (01) ==
LOC: Rad HDHVI 09:26
PROVIDERS: ATTEND Internal Medicine Cardiovascular Disease
DX: C61 Malignant neoplasm of prostate (principal); I10 Essential (primary) hypertension; E11.9 Type 2 diabetes mellitus without complications; E29.1 Testicular hypofunction; D51.9 Vitamin B12 deficiency anemia, unspecified; N39.0 Urinary tract infection, site not specified; K90.9 Intestinal malabsorption, unspecified; E03.9 Hypothyroidism, unspecified; Z00.00 Encounter for general adult medical examination without abnormal findings; Z79.899 Other long term (current) drug therapy; Z95.1 Presence of aortocoronary bypass graft; Z82.49 Family history of ischemic heart disease and other diseases of the circulatory system
CPT/HCPCS: 36415; 78452; 80053; 80061; 81003; 82306; 82607; 83036; 84153; 84403; 84439; 84443; 85025; 93017; 96374; A9500

== ENCOUNTER → 2020-11-19 | Outpatient (CLI) | payer MEDICARE, BC ==
[~2020-11-19] MED LIST changes: +ASCO500T11 PO; +LEVO50TA7 PO; +RIV20T PO
== END | disposition home or self-care (01) ==
LOC: Rad HDHVI 09:16
PROVIDERS: ATTEND Internal Medicine Cardiovascular Disease
DX: M86.8X8 Other osteomyelitis, other site (principal); M79.89 Other specified soft tissue disorders; Z98.61 Coronary angioplasty status
CPT/HCPCS: 71250

== ENCOUNTER → 2021-01-17 | Outpatient (CLI) | payer MEDICARE, BC ==
[~2021-01-17] MED LIST changes: -ASCO500T11 PO; -LEVO50TA7 PO; -RIV20T PO
== END | disposition home or self-care (01) ==
LOC: Rad HDHVI 09:16
PROVIDERS: ATTEND Internal Medicine Cardiovascular Disease
DX: M89.58 Osteolysis, other site (principal); M47.814 Spondylosis without myelopathy or radiculopathy, thoracic region; I70.0 Atherosclerosis of aorta; I25.10 Atherosclerotic heart disease of native coronary artery without angina pectoris; J94.8 Other specified pleural conditions; R07.2 Precordial pain; R07.9 Chest pain, unspecified; Z95.1 Presence of aortocoronary bypass graft
CPT/HCPCS: 71250

== ENCOUNTER 2021-01-21 14:00 | Inpatient (IN) | payer MEDICARE, BC ==
[~2021-01-21] VITALS: Ht 190.5 cm; Wt 132.5 kg
[2021-01-21] MEDS ORDERED: DEXTROSE (50%) 50ML SYRG IV PRN (14:30)
[2021-01-21] MEDS ORDERED: HYDROcodone-ACET 10/325MG TAB PO PRN (14:30)
[2021-01-21] MEDS ORDERED: NITROGLYCERIN 0.4 MG SL TAB SL PRN (14:30)
[2021-01-21] MEDS ORDERED: ENOXAPARIN SOD 60 MG/0.6 ML SYRINGE SC ONE (14:30)
[2021-01-21] MEDS ORDERED: MORPHINE SULF INJ 2 MG/ML SYRINGE 1ML IV PRN (14:30)
[2021-01-21 15:33] VITALS: BP 123/63
[2021-01-21] MEDS ORDERED: RIV20T PO (16:00)
[2021-01-21] MEDS ORDERED: ASCO500T11 PO (16:00)
[2021-01-21] MEDS ORDERED: LEVO50TA7 PO (16:00)
[2021-01-21] MEDS: LEVOTHYROXINE SODIUM 50 MCG TAB PO SCH (17:01)
[2021-01-21] MEDS: ACCU-CHEK COMFORT CURVE STRIP VI SCH ×2 (17:13→21:53)
[2021-01-21] MEDS: PIPERACILLIN-TAZO 4.5GM 100 ML IV SCH (17:13)
[2021-01-21] MEDS: InsuLIN REG 1unit/0.01ml Soln (100units/ml) SC SCH ×2 (17:14→21:55)
[2021-01-21 17:21] LABS: Basophils # (auto) 0.1 10 ^3/uL (0-0.2); Basophils % (auto) 0.7 % (0.0-2.0); Eosinophils # (auto) 0.1 10 ^3/uL (0-0.8); Eosinophils % (auto) 1.8 % (0.0-7.0); Hemoglobin 12.8 g/dL (13.5-17.5); Lymphocytes # (auto) 1.1 10 ^3/uL (0.4-5.4); Lymphocytes % (auto) 16.6 % (10.0-50.0); Mean Corpuscular Hemoglobin 30.5 pg (28.0-32.0); Mean Corpuscular Hgb Conc. 34.7 g/dL (32.0-36.0); Mean Corpuscular Volume 87.9 fL (80.0-100.0); Monocytes # (auto) 0.6 10 ^3/uL (0-1.3); Monocytes % (auto) 8.9 % (0.0-12.0); Neutrophils # (auto) 4.9 10 ^3/uL (1.6-8.6); Nucleated Red Blood Cells % 0.1 %; Platelet Count (auto) 229 10^3/uL (140-450); Red Blood Cells 4.21 10^6/uL (4.5-5.90); Red Cell Distribution Width 15.7 % (11.8-14.3); White Blood Cell 6.8 10^3/uL (4.4-10.8)
[2021-01-21 17:40] LABS: Calcium 8.9 mg/dL (8.5-10.1); Potassium 3.8 mmol/L (3.5-5.1)
[2021-01-21 20:00] VITALS: BP 117/75
[2021-01-21] MEDS: metroNIDAZOLE 500MG/100ML 100 ML IV SCH (21:02)
[2021-01-21] MEDS: ATORVASTATIN 20 MG TAB PO SCH (21:02)
[2021-01-21 22:00] VITALS: BP 117/75
[2021-01-22] MEDS: PIPERACILLIN-TAZO 4.5GM 100 ML IV SCH ×3 (01:51→17:46)
[2021-01-22 05:00] VITALS: BP 127/73
[2021-01-22] MEDS: metroNIDAZOLE 500MG/100ML 100 ML IV SCH ×3 (05:58→22:02)
[2021-01-22] MEDS: ACCU-CHEK COMFORT CURVE STRIP VI SCH ×4 (06:26→22:02)
[2021-01-22] MEDS: InsuLIN REG 1unit/0.01ml Soln (100units/ml) SC SCH ×4 (06:27→22:05)
[2021-01-22] MEDS: LEVOTHYROXINE SODIUM 50 MCG TAB PO SCH (06:31)
[2021-01-22 08:44] VITALS: BP 117/77
[2021-01-22] MEDS ORDERED: LEVOTHYROXINE SODIUM 100 MCG/5 ML INJ IV SCH (10:00)
[2021-01-22] MEDS: PANTOPRAZOLE 40 MG/10 ML VIAL INJ IV SCH (10:21)
[2021-01-22] MEDS: METOPROLOL SUCCINATE XL 50 MG TAB PO SCH (10:21)
[2021-01-22 12:53] VITALS: BP 116/70
[2021-01-22 16:57] VITALS: BP 117/70
[2021-01-22 20:00] VITALS: BP 128/77
[2021-01-22 22:00] VITALS: BP 128/77
[2021-01-22] MEDS: ATORVASTATIN 20 MG TAB PO SCH (22:02)
[2021-01-23] MEDS: PIPERACILLIN-TAZO 4.5GM 100 ML IV SCH ×3 (02:09→18:00)
[2021-01-23 05:00] VITALS: BP 113/76
[2021-01-23] MEDS: LEVOTHYROXINE SODIUM 50 MCG TAB PO SCH (05:53)
[2021-01-23] MEDS: metroNIDAZOLE 500MG/100ML 100 ML IV SCH ×3 (05:53→21:32)
[2021-01-23] MEDS: ACCU-CHEK COMFORT CURVE STRIP VI SCH ×4 (05:54→21:42)
[2021-01-23] MEDS: InsuLIN REG 1unit/0.01ml Soln (100units/ml) SC SCH ×4 (06:20→21:41)
[2021-01-23 08:31] VITALS: BP 131/82
[2021-01-23] MEDS: PANTOPRAZOLE 40 MG/10 ML VIAL INJ IV SCH (10:00)
[2021-01-23] MEDS: METOPROLOL SUCCINATE XL 50 MG TAB PO SCH (10:00)
[2021-01-23 13:00] VITALS: BP 115/74
[2021-01-23 16:44] VITALS: BP 136/76
[2021-01-23] MEDS: ATORVASTATIN 20 MG TAB PO SCH (21:32)
[2021-01-23 22:00] VITALS: BP 124/73
[2021-01-24] MEDS: PIPERACILLIN-TAZO 4.5GM 100 ML IV SCH ×3 (02:25→18:47)
[2021-01-24 05:13] VITALS: BP 140/80
[2021-01-24] MEDS: metroNIDAZOLE 500MG/100ML 100 ML IV SCH ×3 (06:43→22:05)
[2021-01-24] MEDS: LEVOTHYROXINE SODIUM 50 MCG TAB PO SCH (06:44)
[2021-01-24] MEDS: InsuLIN REG 1unit/0.01ml Soln (100units/ml) SC SCH ×4 (06:50→22:07)
[2021-01-24] MEDS: ACCU-CHEK COMFORT CURVE STRIP VI SCH ×4 (06:50→22:07)
[2021-01-24 09:00] VITALS: BP 126/73
[2021-01-24] MEDS: METOPROLOL SUCCINATE XL 50 MG TAB PO SCH (10:00)
[2021-01-24] MEDS: PANTOPRAZOLE 40 MG/10 ML VIAL INJ IV SCH (10:29)
[2021-01-24 13:00] VITALS: BP 119/70
[2021-01-24 17:00] VITALS: BP 129/74
[2021-01-24 22:00] VITALS: BP 128/83
[2021-01-24] MEDS: ATORVASTATIN 20 MG TAB PO SCH (22:05)
[2021-01-25] MEDS: PIPERACILLIN-TAZO 4.5GM 100 ML IV SCH ×3 (01:59→17:33)
[2021-01-25 05:00] VITALS: BP 138/85
[2021-01-25] MEDS: metroNIDAZOLE 500MG/100ML 100 ML IV SCH ×3 (06:53→22:06)
[2021-01-25] MEDS: LEVOTHYROXINE SODIUM 50 MCG TAB PO SCH (06:54)
[2021-01-25] MEDS: ACCU-CHEK COMFORT CURVE STRIP VI SCH ×4 (07:04→22:05)
[2021-01-25] MEDS: InsuLIN REG 1unit/0.01ml Soln (100units/ml) SC SCH ×4 (07:04→22:07)
[2021-01-25 07:17] LABS: Basophils # (auto) 0.1 10 ^3/uL (0-0.2); Basophils % (auto) 0.8 % (0.0-2.0); Eosinophils # (auto) 0.1 10 ^3/uL (0-0.8); Eosinophils % (auto) 1.9 % (0.0-7.0); Hemoglobin 12.4 g/dL (13.5-17.5); Lymphocytes # (auto) 1.4 10 ^3/uL (0.4-5.4); Lymphocytes % (auto) 21.6 % (10.0-50.0); Mean Corpuscular Hemoglobin 30.2 pg (28.0-32.0); Mean Corpuscular Hgb Conc. 34.6 g/dL (32.0-36.0); Mean Corpuscular Volume 87.3 fL (80.0-100.0); Monocytes # (auto) 0.7 10 ^3/uL (0-1.3); Monocytes % (auto) 10.8 % (0.0-12.0); Neutrophils # (auto) 4.4 10 ^3/uL (1.6-8.6); Neutrophils % (auto) 64.9 % (37.0-80.0); Platelet Count (auto) 259 10^3/uL (140-450); Red Blood Cells 4.12 10^6/uL (4.5-5.90); Red Cell Distribution Width 15.6 % (11.8-14.3); White Blood Cell 6.7 10^3/uL (4.4-10.8)
[2021-01-25 07:42] LABS: Potassium 3.9 mmol/L (3.5-5.1)
[2021-01-25 07:55] LABS: Calcium 8.8 mg/dL (8.5-10.1)
[2021-01-25 09:00] VITALS: BP 150/75
[2021-01-25] MEDS: PANTOPRAZOLE 40 MG/10 ML VIAL INJ IV SCH (09:57)
[2021-01-25] MEDS: METOPROLOL SUCCINATE XL 50 MG TAB PO SCH (09:58)
[2021-01-25 13:00] VITALS: BP 141/79
[2021-01-25 16:48] VITALS: BP 124/72
[2021-01-25 22:00] VITALS: BP 127/72
[2021-01-25] MEDS: ATORVASTATIN 20 MG TAB PO SCH (22:06)
[2021-01-26] MEDS: PIPERACILLIN-TAZO 4.5GM 100 ML IV SCH ×3 (01:28→18:00)
[2021-01-26 05:00] VITALS: BP 123/72
[2021-01-26] MEDS: metroNIDAZOLE 500MG/100ML 100 ML IV SCH ×3 (05:43→21:43)
[2021-01-26] MEDS: LEVOTHYROXINE SODIUM 50 MCG TAB PO SCH (06:36)
[2021-01-26] MEDS: ACCU-CHEK COMFORT CURVE STRIP VI SCH ×4 (06:36→21:43)
[2021-01-26] MEDS: InsuLIN REG 1unit/0.01ml Soln (100units/ml) SC SCH ×4 (06:37→21:50)
[2021-01-26 08:41] VITALS: BP 145/87
[2021-01-26] MEDS: PANTOPRAZOLE 40 MG/10 ML VIAL INJ IV SCH (10:01)
[2021-01-26] MEDS: METOPROLOL SUCCINATE XL 50 MG TAB PO SCH (10:02)
[2021-01-26 12:57] VITALS: BP 124/76
[2021-01-26 17:00] VITALS: BP 151/93
[2021-01-26 17:19] VITALS: BP 121/71
[2021-01-26] MEDS: ATORVASTATIN 20 MG TAB PO SCH (21:43)
[2021-01-27] MEDS: PIPERACILLIN-TAZO 4.5GM 100 ML IV SCH ×3 (02:05→17:40)
[2021-01-27 05:00] VITALS: BP 121/77
[2021-01-27] MEDS: LEVOTHYROXINE SODIUM 50 MCG TAB PO SCH (06:16)
[2021-01-27] MEDS: metroNIDAZOLE 500MG/100ML 100 ML IV SCH ×3 (06:16→22:08)
[2021-01-27] MEDS: ACCU-CHEK COMFORT CURVE STRIP VI SCH ×4 (06:16→22:01)
[2021-01-27] MEDS: InsuLIN REG 1unit/0.01ml Soln (100units/ml) SC SCH ×4 (06:18→22:09)
[2021-01-27 08:41] VITALS: BP 128/91
[2021-01-27] MEDS: METOPROLOL SUCCINATE XL 50 MG TAB PO SCH (10:07)
[2021-01-27] MEDS: PANTOPRAZOLE 40 MG/10 ML VIAL INJ IV SCH (10:07)
[2021-01-27 12:38] VITALS: BP 144/93
[2021-01-27 16:54] VITALS: BP 133/75
[2021-01-27 22:00] VITALS: BP 107/69
[2021-01-27] MEDS: ATORVASTATIN 20 MG TAB PO SCH (22:07)
[2021-01-28] MEDS: PIPERACILLIN-TAZO 4.5GM 100 ML IV SCH (01:32)
[2021-01-28 01:46] VITALS: BP 109/70
[2021-01-28 05:00] VITALS: BP 109/70
[2021-01-28] MEDS: ACCU-CHEK COMFORT CURVE STRIP VI SCH (06:17)
[2021-01-28] MEDS: metroNIDAZOLE 500MG/100ML 100 ML IV SCH (06:17)
[2021-01-28] MEDS: LEVOTHYROXINE SODIUM 50 MCG TAB PO SCH (06:17)
[2021-01-28] MEDS: InsuLIN REG 1unit/0.01ml Soln (100units/ml) SC SCH (06:19)
[2021-01-28 08:55] VITALS: BP 141/82
== END 2021-01-28 10:00 | disposition short-term general hospital (02) | DRG 862 ==
LOC: EAST 14:00 → TELE-EAST 17:48 → TELE-WESTW 01-22 03:03
PROVIDERS: ADMIT Internal Medicine Cardiovascular Disease; ATTEND Internal Medicine Cardiovascular Disease
DX: T81.43XA Infection following a procedure, organ and space surgical site, initial encounter (principal); A41.9 Sepsis, unspecified organism; J85.3 Abscess of mediastinum; I25.10 Atherosclerotic heart disease of native coronary artery without angina pectoris; Z95.1 Presence of aortocoronary bypass graft; E66.01 Morbid (severe) obesity due to excess calories; E78.5 Hyperlipidemia, unspecified; Z20.822 Contact with and (suspected) exposure to COVID-19; E11.9 Type 2 diabetes mellitus without complications; I11.0 Hypertensive heart disease with heart failure; Z82.49 Family history of ischemic heart disease and other diseases of the circulatory system; Z80.0 Family history of malignant neoplasm of digestive organs; Z80.8 Family history of malignant neoplasm of other organs or systems; I50.9 Heart failure, unspecified; Y83.8 Other surgical procedures as the cause of abnormal reaction of the patient, or of later complication, without mention of misadventure at the time of the procedure; Y92.89 Other specified places as the place of occurrence of the external cause; Z68.38 Body mass index [BMI] 38.0-38.9, adult
CPT/HCPCS: 36415; 71045; 80048; 82962; 85025; 86850; 86900; 86901; 87040; 87205; 87426; 93005; 93306; C9113; G0378; J1815; J2543; J3490

== ENCOUNTER → 2021-05-10 | Outpatient (CLI) | payer MEDICARE, BC ==
[~2021-05-10] MED LIST changes: +ASCO500T11 PO; -ASPI-543 PO; +LEVO50TA7 PO; +RIV20T PO; -TRAM50TA2 PO
== END | disposition home or self-care (01) ==
LOC: Rad HDHVI 09:36
PROVIDERS: ATTEND Internal Medicine Cardiovascular Disease
DX: I10 Essential (primary) hypertension (principal); R06.02 Shortness of breath
CPT/HCPCS: 93306

== ENCOUNTER → 2021-05-27 | Outpatient (CLI) | payer MEDICARE, BC ==
[~2021-05-27] VITALS: Ht 190.5 cm; Wt 131.5 kg
== END | disposition home or self-care (01) ==
LOC: Rad HDHVI 12:57
PROVIDERS: ATTEND Internal Medicine Cardiovascular Disease
DX: I11.0 Hypertensive heart disease with heart failure (principal); I50.33 Acute on chronic diastolic (congestive) heart failure; I25.10 Atherosclerotic heart disease of native coronary artery without angina pectoris; E78.5 Hyperlipidemia, unspecified; E11.9 Type 2 diabetes mellitus without complications; Z82.49 Family history of ischemic heart disease and other diseases of the circulatory system; Z95.1 Presence of aortocoronary bypass graft
CPT/HCPCS: 78452; 93017; 96374; A9500

== ENCOUNTER → 2022-05-13 | Outpatient (CLI) | payer MEDICARE, BC ==
[~2022-05-13] VITALS: Ht 190.5 cm; Wt 129.3 kg
== END | disposition home or self-care (01) ==
LOC: Rad HDHVI 09:33
PROVIDERS: ATTEND Internal Medicine Cardiovascular Disease
DX: I11.0 Hypertensive heart disease with heart failure (principal); I50.33 Acute on chronic diastolic (congestive) heart failure; E11.9 Type 2 diabetes mellitus without complications; I10 Essential (primary) hypertension; E78.5 Hyperlipidemia, unspecified; Z95.1 Presence of aortocoronary bypass graft; Z82.49 Family history of ischemic heart disease and other diseases of the circulatory system
CPT/HCPCS: 78452; 93017; 96374; A9500

== ENCOUNTER → 2022-05-27 | Outpatient (CLI) | payer MEDICARE, BC ==
[2022-05-27 16:08] LABS: Basophils # (auto) 0.1 10 ^3/uL (0-0.2); Basophils % (auto) 0.9 % (0.0-2.0); Eosinophils # (auto) 0.2 10 ^3/uL (0-0.8); Eosinophils % (auto) 1.9 % (0.0-7.0); Hematocrit 47.7 % (41.0-53.0); Hemoglobin 15.6 g/dL (13.5-17.5); Lymphocytes # (auto) 1.6 10 ^3/uL (0.4-5.4); Lymphocytes % (auto) 18.1 % (10.0-50.0); Mean Corpuscular Hemoglobin 29.3 pg (28.0-32.0); Mean Corpuscular Hgb Conc. 32.7 g/dL (32.0-36.0); Mean Corpuscular Volume 89.6 fL (80.0-100.0); Neutrophils % (auto) 68.1 % (37.0-80.0); Red Blood Cells 5.33 10^6/uL (4.5-5.90); Red Cell Distribution Width 15.4 % (11.8-14.3); White Blood Cell 8.8 10^3/uL (4.4-10.8)
[2022-05-27 16:09] LABS: Urine Blood Negative /uL (Negative); Urine Specific Gravity 1.019 (1.001-1.035)
[2022-05-27 16:20] LABS: Albumin 3.8 g/dL (3.4-5.0); Calcium 9.4 mg/dL (8.5-10.1); Potassium 4.6 mmol/L (3.5-5.1)
[2022-05-27 16:25] LABS: BUN/Creatinine Ratio 20.9; Bilirubin, Direct 0.2 mg/dL (0-0.2); Bilirubin, Total 0.6 mg/dL (0.2-1.0); Total Protein 8.3 g/dL (6.4-8.2)
[2022-05-27 16:30] LABS: Free T4 (Free Thyroxine) 1.08 ng/dL (0.89-1.76); Prostate Specific Antigen 3.44 ng/mL (0.0-4.0)
== END | disposition home or self-care (01) ==
LOC: LAB 11:13
PROVIDERS: ATTEND Internal Medicine Cardiovascular Disease
DX: D51.3 Other dietary vitamin B12 deficiency anemia (principal); D64.9 Anemia, unspecified; E11.9 Type 2 diabetes mellitus without complications; E55.9 Vitamin D deficiency, unspecified; I10 Essential (primary) hypertension; R00.2 Palpitations; R53.1 Weakness; R30.0 Dysuria; C61 Malignant neoplasm of prostate
CPT/HCPCS: 36415; 80048; 80061; 80076; 81003; 82306; 83036; 84153; 84403; 84439; 84443; 85025; 87086

== ENCOUNTER → 2022-12-29 | Outpatient (CLI) | payer MEDICARE, BC | END | disposition home or self-care (01) | LOC: Rad HDHVI 08:11 | PROVIDERS: ATTEND Internal Medicine Cardiovascular Disease | DX: I08.3 Combined rheumatic disorders of mitral, aortic and tricuspid valves (principal); I10 Essential (primary) hypertension | CPT/HCPCS: 93306 ==

== ENCOUNTER 2023-06-03 08:27 | Inpatient (IN) | payer MEDICARE, BC ==
[~2023-06-03] VITALS: Ht 190.5 cm; Wt 135.0 kg
[2023-06-03 02:30] VITALS: PULSE 71; RESP 20; O2SAT 94
[2023-06-03 09:34] LABS: Basophils # (auto) 0.1 10 ^3/uL (0-0.2); Eosinophils # (auto) 0.2 10 ^3/uL (0-0.8); Eosinophils % (auto) 2.7 % (0.0-7.0); Hematocrit 46.1 % (41.0-53.0); Hemoglobin 14.7 g/dL (13.5-17.5); Lymphocytes # (auto) 1.4 10 ^3/uL (0.4-5.4); Lymphocytes % (auto) 15.8 % (10.0-50.0); Mean Corpuscular Hemoglobin 26.8 pg (28.0-32.0); Mean Corpuscular Hgb Conc. 31.9 g/dL (32.0-36.0); Mean Corpuscular Volume 84.2 fL (80.0-100.0); Monocytes # (auto) 0.8 10 ^3/uL (0-1.3); Monocytes % (auto) 9.6 % (0.0-12.0); Neutrophils # (auto) 6.3 10 ^3/uL (1.6-8.6); Neutrophils % (auto) 70.9 % (37.0-80.0); Red Blood Cells 5.47 10^6/uL (4.5-5.90); Red Cell Distribution Width 17.3 % (11.8-14.3); White Blood Cell 8.9 10^3/uL (4.4-10.8)
[2023-06-03 09:55] LABS: Albumin 3.7 g/dL (3.4-5.0); Calcium 7.9 mg/dL (8.5-10.1)
[2023-06-03 09:59] LABS: Bilirubin, Total 0.6 mg/dL (0.2-1.0); Total Protein 7.9 g/dL (6.4-8.2)
[2023-06-03 10:14] LABS: INR 1.15 (0.9-1.15); Partial Thromboplastin Time 31.6 SEC (24.5-34.5)
[2023-06-03 15:00] VITALS: PULSE 65; RESP 13; O2SAT 95
[2023-06-03 15:02] LABS: Urine Bacteria NONE SEEN /hpf (None Seen); Urine Blood Negative /uL (Negative); Urine Mucus FEW (None Seen); Urine Specific Gravity 1.028 (1.001-1.035); Urine WBC 2 /hpf (0 - 3)
[2023-06-03] MEDS ORDERED: DEXTROSE (50%) 50ML SYRG IV PRN (15:45)
[2023-06-03] MEDS ORDERED: ACETAMINOPHEN 325 MG TAB PO PRN (16:45)
[2023-06-03] MEDS ORDERED: DOCUSATE SOD 100 MG CAP PO PRN (16:45)
[2023-06-03] MEDS ORDERED: ONDANSETRON HCL 4 MG/2 ML VIAL IV PRN (16:45)
[2023-06-03] MEDS: InsuLIN REG 1unit/0.01ml Soln (100units/ml) SC SCH ×2 (17:00→22:50)
[2023-06-03] MEDS ORDERED: LEVOTHYROXINE SODIUM 50 MCG TAB PO SCH (18:00)
[2023-06-03] MEDS: ACCU-CHEK COMFORT CURVE STRIP VI SCH ×2 (18:12→22:50)
[2023-06-03] MEDS ORDERED: WARFARIN SODIUM 10 MG TAB PO ONE (18:30)
[2023-06-03 19:18] VITALS: PULSE 66; RESP 14; O2SAT 95
[2023-06-03] MEDS: ATORVASTATIN 20 MG TAB PO SCH (22:45)
[2023-06-03] MEDS: SODIUM CHLOR 0.9% PF (SALINE LOCK) 10ML VIAL/SYR IV SCH (22:45)
[2023-06-03] MEDS: METOPROLOL TARTRATE 25 MG TAB PO SCH (22:46)
[2023-06-03] MEDS: ENOXAPARIN SOD 150 MG/1 ML SYRINGE SC SCH (22:46)
[2023-06-03] MEDS: INSULIN LANTUS (GLARGINE) 1 /0.01ml (100units/ml) SC SCH (22:49)
[2023-06-04] VITALS (9 sets, daily range): BP systolic 123–152; BP diastolic 69–84; PULSE 64–91; RESP 18–20; TEMP 97.7–98.6; O2SAT 92–96
[2023-06-04] MEDS: LEVOTHYROXINE SODIUM 50 MCG TAB PO SCH (05:36)
[2023-06-04] MEDS: SODIUM CHLOR 0.9% PF (SALINE LOCK) 10ML VIAL/SYR IV SCH ×3 (05:36→22:17)
[2023-06-04] MEDS: ACCU-CHEK COMFORT CURVE STRIP VI SCH ×4 (05:37→22:10)
[2023-06-04] MEDS: InsuLIN REG 1unit/0.01ml Soln (100units/ml) SC SCH ×4 (05:37→22:00)
[2023-06-04 06:03] LABS: Albumin 3.4 g/dL (3.4-5.0); Calcium 8.5 mg/dL (8.5-10.1)
[2023-06-04 06:07] LABS: BUN/Creatinine Ratio 17.7 (10.0-20.0); Bilirubin, Total 0.8 mg/dL (0.2-1.0); Total Protein 7.8 g/dL (6.4-8.2)
[2023-06-04 06:11] LABS: INR 1.17 (0.9-1.15)
[2023-06-04 06:20] LABS: Basophils # (auto) 0.1 10 ^3/uL (0-0.2); Basophils % (auto) 0.7 % (0.0-2.0); Eosinophils # (auto) 0.2 10 ^3/uL (0-0.8); Eosinophils % (auto) 2.3 % (0.0-7.0); Hematocrit 43.8 % (41.0-53.0); Hemoglobin 14.3 g/dL (13.5-17.5); Lymphocytes # (auto) 1.8 10 ^3/uL (0.4-5.4); Lymphocytes % (auto) 17.2 % (10.0-50.0); Mean Corpuscular Hemoglobin 27.3 pg (28.0-32.0); Mean Corpuscular Hgb Conc. 32.7 g/dL (32.0-36.0); Mean Corpuscular Volume 83.4 fL (80.0-100.0); Monocytes % (auto) 9.5 % (0.0-12.0); Neutrophils # (auto) 7.3 10 ^3/uL (1.6-8.6); Neutrophils % (auto) 70.3 % (37.0-80.0); Nucleated Red Blood Cells % 0.1 %; Red Blood Cells 5.25 10^6/uL (4.5-5.90); Red Cell Distribution Width 17.2 % (11.8-14.3); White Blood Cell 10.5 10^3/uL (4.4-10.8)
[2023-06-04] MEDS: CHOLECALCIFEROL (VITD3) 1,000UNIT=25mCg TAB PO SCH (09:28)
[2023-06-04] MEDS: ASCORBIC ACID 500 MG TAB PO SCH (09:29)
[2023-06-04] MEDS: ENOXAPARIN SOD 150 MG/1 ML SYRINGE SC SCH ×2 (09:29→22:04)
[2023-06-04] MEDS: METOPROLOL TARTRATE 25 MG TAB PO SCH ×2 (09:29→22:03)
[2023-06-04] MEDS: COENZYME Q10 100 MG PO SCH (09:30)
[2023-06-04] MEDS: FATTY ACIDS PO SCH (09:31)
[2023-06-04] MEDS: OMEGA PO SCH (09:31)
[2023-06-04] MEDS ORDERED: INSU1INJ19 SC (13:40)
[2023-06-04] MEDS ORDERED: ATO40T PO (13:40)
[2023-06-04] MEDS ORDERED: OMEP20TA PO (13:40)
[2023-06-04] MEDS ORDERED: OLME20TA53 PO (13:40)
[2023-06-04] MEDS ORDERED: ASPI-543 PO (13:40)
[2023-06-04] MEDS ORDERED: WARFARIN SODIUM 10 MG TAB PO ONE (17:00)
[2023-06-04] MEDS: ATORVASTATIN 20 MG TAB PO SCH (22:02)
[2023-06-04] MEDS: INSULIN LANTUS (GLARGINE) 1 /0.01ml (100units/ml) SC SCH (22:16)
[2023-06-04] MEDS: HYDROcodone-ACET 5/325MG TAB PO PRN (22:19)
[2023-06-05] VITALS (7 sets, daily range): BP systolic 124–149; BP diastolic 71–91; PULSE 63–76; RESP 18–20; TEMP 97.7–98.2; O2SAT 94–95
[2023-06-05] MEDS: LEVOTHYROXINE SODIUM 50 MCG TAB PO SCH (06:09)
[2023-06-05] MEDS: ACCU-CHEK COMFORT CURVE STRIP VI SCH ×4 (06:12→21:37)
[2023-06-05] MEDS: InsuLIN REG 1unit/0.01ml Soln (100units/ml) SC SCH ×4 (06:13→21:44)
[2023-06-05] MEDS: SODIUM CHLOR 0.9% PF (SALINE LOCK) 10ML VIAL/SYR IV SCH ×3 (06:13→21:34)
[2023-06-05 06:25] LABS: INR 1.21 (0.9-1.15); Partial Thromboplastin Time 35.2 SEC (24.5-34.5)
[2023-06-05] MEDS: FATTY ACIDS PO SCH (10:00)
[2023-06-05] MEDS: COENZYME Q10 100 MG PO SCH (10:00)
[2023-06-05] MEDS: OMEGA PO SCH (10:00)
[2023-06-05] MEDS: ASCORBIC ACID 500 MG TAB PO SCH (10:02)
[2023-06-05] MEDS: CHOLECALCIFEROL (VITD3) 1,000UNIT=25mCg TAB PO SCH (10:02)
[2023-06-05] MEDS: ENOXAPARIN SOD 150 MG/1 ML SYRINGE SC SCH (10:02)
[2023-06-05] MEDS: METOPROLOL TARTRATE 25 MG TAB PO SCH ×2 (10:02→21:32)
[2023-06-05] MEDS ORDERED: WARFARIN SODIUM 10 MG TAB PO ONE (17:00)
[2023-06-05] MEDS: ATORVASTATIN 20 MG TAB PO SCH (21:33)
[2023-06-05] MEDS: HYDROcodone-ACET 5/325MG TAB PO PRN (21:33)
[2023-06-05] MEDS: INSULIN LANTUS (GLARGINE) 1 /0.01ml (100units/ml) SC SCH (21:46)
[2023-06-06 05:00] VITALS: BP 130/77; PULSE 64; RESP 18; TEMP 98.1; O2SAT 96
[2023-06-06] MEDS: LEVOTHYROXINE SODIUM 50 MCG TAB PO SCH (05:09)
[2023-06-06] MEDS: SODIUM CHLOR 0.9% PF (SALINE LOCK) 10ML VIAL/SYR IV SCH ×3 (05:10→22:25)
[2023-06-06 06:04] LABS: INR 1.48 (0.9-1.15); Partial Thromboplastin Time 34.5 SEC (24.5-34.5)
[2023-06-06] MEDS: ACCU-CHEK COMFORT CURVE STRIP VI SCH ×4 (06:28→22:43)
[2023-06-06] MEDS: InsuLIN REG 1unit/0.01ml Soln (100units/ml) SC SCH ×4 (06:28→22:43)
[2023-06-06 09:00] VITALS: BP 129/73; PULSE 66; RESP 20; TEMP 98.2; O2SAT 96
[2023-06-06] MEDS: COENZYME Q10 100 MG PO SCH (10:00)
[2023-06-06] MEDS: FATTY ACIDS PO SCH (10:00)
[2023-06-06] MEDS: OMEGA PO SCH (10:00)
[2023-06-06] MEDS: METOPROLOL TARTRATE 25 MG TAB PO SCH ×2 (11:13→22:25)
[2023-06-06] MEDS: ASCORBIC ACID 500 MG TAB PO SCH (11:13)
[2023-06-06] MEDS: CHOLECALCIFEROL (VITD3) 1,000UNIT=25mCg TAB PO SCH (11:14)
[2023-06-06 13:00] VITALS: BP 145/86; PULSE 79; RESP 18; TEMP 98.6; O2SAT 97
[2023-06-06 17:00] VITALS: BP 143/79; PULSE 70; RESP 15; TEMP 98.2; O2SAT 92
[2023-06-06] MEDS ORDERED: WARFARIN SODIUM 10 MG TAB PO ONE (17:00)
[2023-06-06 20:00] VITALS: PULSE 82; RESP 18; O2SAT 97
[2023-06-06 22:00] VITALS: BP 108/75; PULSE 82; RESP 18; TEMP 97.8; O2SAT 97
[2023-06-06] MEDS: ATORVASTATIN 20 MG TAB PO SCH (22:22)
[2023-06-06] MEDS: INSULIN LANTUS (GLARGINE) 1 /0.01ml (100units/ml) SC SCH (22:50)
[2023-06-07 05:00] VITALS: BP 127/73; PULSE 75; RESP 18; TEMP 97.7; O2SAT 95
[2023-06-07] MEDS: LEVOTHYROXINE SODIUM 50 MCG TAB PO SCH (06:14)
[2023-06-07] MEDS: ACCU-CHEK COMFORT CURVE STRIP VI SCH ×4 (06:14→22:32)
[2023-06-07] MEDS: InsuLIN REG 1unit/0.01ml Soln (100units/ml) SC SCH ×4 (06:18→22:40)
[2023-06-07] MEDS: SODIUM CHLOR 0.9% PF (SALINE LOCK) 10ML VIAL/SYR IV SCH ×3 (06:18→22:50)
[2023-06-07 06:41] LABS: INR 2.09 (0.9-1.15); Partial Thromboplastin Time 34.1 SEC (24.5-34.5)
[2023-06-07 08:50] VITALS: BP 132/85; PULSE 69; RESP 16; TEMP 97.5; O2SAT 95
[2023-06-07] MEDS: FATTY ACIDS PO SCH (09:04)
[2023-06-07] MEDS: OMEGA PO SCH (09:04)
[2023-06-07] MEDS: COENZYME Q10 100 MG PO SCH (09:04)
[2023-06-07] MEDS: CHOLECALCIFEROL (VITD3) 1,000UNIT=25mCg TAB PO SCH (09:10)
[2023-06-07] MEDS: ASCORBIC ACID 500 MG TAB PO SCH (09:10)
[2023-06-07] MEDS: METOPROLOL TARTRATE 25 MG TAB PO SCH ×2 (09:11→22:50)
[2023-06-07 12:58] VITALS: BP 115/70; PULSE 74; RESP 16; TEMP 97.8; O2SAT 95
[2023-06-07 17:00] VITALS: BP 112/53; PULSE 67; RESP 16; TEMP 97.9; O2SAT 99
[2023-06-07] MEDS ORDERED: WARFARIN SODIUM 5 MG TAB PO ONE (17:00)
[2023-06-07 20:00] VITALS: PULSE 70; RESP 19; O2SAT 95
[2023-06-07 22:00] VITALS: BP 123/71; PULSE 70; RESP 19; TEMP 98; O2SAT 95
[2023-06-07] MEDS: INSULIN LANTUS (GLARGINE) 1 /0.01ml (100units/ml) SC SCH (22:40)
[2023-06-07] MEDS: ATORVASTATIN 20 MG TAB PO SCH (22:50)
[2023-06-08 05:00] VITALS: BP 121/73; PULSE 78; RESP 18; TEMP 98.1; O2SAT 92
[2023-06-08] MEDS: LEVOTHYROXINE SODIUM 50 MCG TAB PO SCH (05:00)
[2023-06-08] MEDS: SODIUM CHLOR 0.9% PF (SALINE LOCK) 10ML VIAL/SYR IV SCH ×2 (05:39→13:14)
[2023-06-08] MEDS: ACCU-CHEK COMFORT CURVE STRIP VI SCH ×2 (06:09→11:14)
[2023-06-08] MEDS: InsuLIN REG 1unit/0.01ml Soln (100units/ml) SC SCH ×2 (06:09→11:14)
[2023-06-08 07:55] LABS: INR 2.79 (0.9-1.15)
[2023-06-08 09:00] VITALS: BP 114/82; PULSE 76; RESP 28; TEMP 98.9; O2SAT 95
[2023-06-08] MEDS: ASCORBIC ACID 500 MG TAB PO SCH (09:15)
[2023-06-08] MEDS: CHOLECALCIFEROL (VITD3) 1,000UNIT=25mCg TAB PO SCH (09:16)
[2023-06-08] MEDS: METOPROLOL TARTRATE 25 MG TAB PO SCH (09:16)
[2023-06-08] MEDS: OMEGA PO SCH (09:16)
[2023-06-08] MEDS: COENZYME Q10 100 MG PO SCH (09:16)
[2023-06-08] MEDS: FATTY ACIDS PO SCH (09:16)
[2023-06-08 13:00] VITALS: BP 118/77; PULSE 76; RESP 18; TEMP 98.6; O2SAT 98
[2023-06-08 15:16] VITALS: BP 118/77; PULSE 76; TEMP 98.6
[2023-06-08] MEDS ORDERED: WARFARIN SODIUM 2.5 MG TAB PO ONE (17:00)
== END 2023-06-08 15:58 | disposition home or self-care (01) | DRG 300 ==
LOC: ER 08:27 → TELE 16:47 → TELE-WESTW 22:25 → WEST WING 06-05 23:22
PROVIDERS: ADMIT Internal Medicine Cardiovascular Disease; ATTEND Internal Medicine Cardiovascular Disease
DX: I82.412 Acute embolism and thrombosis of left femoral vein (principal); I25.810 Atherosclerosis of coronary artery bypass graft(s) without angina pectoris; E03.9 Hypothyroidism, unspecified; E78.5 Hyperlipidemia, unspecified; F17.210 Nicotine dependence, cigarettes, uncomplicated; E66.9 Obesity, unspecified; I51.89 Other ill-defined heart diseases; I10 Essential (primary) hypertension; E11.42 Type 2 diabetes mellitus with diabetic polyneuropathy; Z20.822 Contact with and (suspected) exposure to COVID-19; Z86.718 Personal history of other venous thrombosis and embolism; Z86.711 Personal history of pulmonary embolism; Z88.8 Allergy status to other drugs, medicaments and biological substances; Z95.1 Presence of aortocoronary bypass graft; Z68.39 Body mass index [BMI] 39.0-39.9, adult
CPT/HCPCS: 36415; 80053; 81001; 82962; 85025; 85610; 85730; 93971; 97110; 97116; 97163; 97530; G0378; J1815

== ENCOUNTER → 2023-06-15 | Outpatient (CLI) | payer MEDICARE, BC ==
[~2023-06-15] MED LIST changes: +ASPI-543 PO; +ATO40T PO; -COEN100C15 PO; +INSU1INJ19 SC; +IOHEXOL 350 MG/ML 100ML IJ ONE; +OLME20TA53 PO; -OMEG1CAP59 PO; +OMEP20TA PO; +READI-CAT 2 (BARIUM SULF)(VANILLA SMOOTHIE) 450ML ONE; -RIV20T PO
[2023-06-15 10:53] VITALS: BP 140/73; PULSE 79; RESP 20; O2SAT 94
[2023-06-15 11:45] VITALS: BP 156/76; PULSE 81; RESP 18; O2SAT 94
== END | disposition home or self-care (01) ==
LOC: Rad HDHVI 10:44
PROVIDERS: ATTEND Internal Medicine Cardiovascular Disease
DX: N28.1 Cyst of kidney, acquired (principal); K80.20 Calculus of gallbladder without cholecystitis without obstruction; K57.30 Diverticulosis of large intestine without perforation or abscess without bleeding; R10.9 Unspecified abdominal pain; I82.409 Acute embolism and thrombosis of unspecified deep veins of unspecified lower extremity; D68.59 Other primary thrombophilia; J90 Pleural effusion, not elsewhere classified; I70.0 Atherosclerosis of aorta; Z98.890 Other specified postprocedural states
CPT/HCPCS: 74177; G0463; Q9967

== ENCOUNTER → 2023-07-22 | Outpatient (CLI) | payer MEDICARE, BC ==
[~2023-07-22] MED LIST changes: +CHOL100079 OR; +FURO1TAB33 PO; -IOHEXOL 350 MG/ML 100ML IJ ONE; +KRIL1CAP14 PO; +MIDAZOLAM HCL 2MG/2ML 2ml VIAL (1mg/ml) ONE; +POTA1TAB61 PO; -READI-CAT 2 (BARIUM SULF)(VANILLA SMOOTHIE) 450ML ONE; +RIV15T PO; +RIVA20TA PO; +SILD-60 PO; +TOBR0.3S37 OP; +TURM500C3 OR
[2023-07-22 09:05] VITALS: BP 140/65; PULSE 76; RESP 18; O2SAT 95
[2023-07-22 09:18] VITALS: BP 129/67; PULSE 70; RESP 18; O2SAT 95
== END | disposition home or self-care (01) ==
LOC: CHF HDHVI 08:39
PROVIDERS: ATTEND Internal Medicine Cardiovascular Disease
DX: Z01.818 Encounter for other preprocedural examination (principal); I45.10 Unspecified right bundle-branch block; R94.31 Abnormal electrocardiogram [ECG] [EKG]; I11.0 Hypertensive heart disease with heart failure; I50.33 Acute on chronic diastolic (congestive) heart failure; R06.02 Shortness of breath; R06.01 Orthopnea
CPT/HCPCS: 36415; 80048; 85025; 85610; 85730; 93005; G0463

== ENCOUNTER 2023-07-23 07:59 | Day surgery (SDC) | payer MEDICARE, BC ==
[2023-07-22 10:50] LABS: Basophils # (auto) 0.1 10 ^3/uL (0-0.2); Basophils % (auto) 0.8 % (0.0-2.0); Eosinophils # (auto) 0.1 10 ^3/uL (0-0.8); Eosinophils % (auto) 1.5 % (0.0-7.0); Hematocrit 45.5 % (41.0-53.0); Hemoglobin 15.1 g/dL (13.5-17.5); Lymphocytes # (auto) 1.3 10 ^3/uL (0.4-5.4); Lymphocytes % (auto) 13.3 % (10.0-50.0); Mean Corpuscular Hemoglobin 27.3 pg (28.0-32.0); Mean Corpuscular Hgb Conc. 33.2 g/dL (32.0-36.0); Monocytes # (auto) 0.9 10 ^3/uL (0-1.3); Monocytes % (auto) 8.8 % (0.0-12.0); Neutrophils # (auto) 7.4 10 ^3/uL (1.6-8.6); Neutrophils % (auto) 75.6 % (37.0-80.0); Nucleated Red Blood Cells % 0.1 %; Red Blood Cells 5.55 10^6/uL (4.5-5.90); Red Cell Distribution Width 19.4 % (11.8-14.3); White Blood Cell 9.7 10^3/uL (4.4-10.8)
[2023-07-22 11:00] LABS: INR 1.39 (0.9-1.15); Prothrombin Time 14.3 sec (9.3-11.8)
[2023-07-22 11:03] LABS: Chloride 103 mmol/L (98-107); Sodium 138 mmol/L (136-145)
[2023-07-22 11:04] LABS: Anion Gap 5 (5-15); Calcium 9.9 mg/dL (8.7-10.4); Carbon Dioxide 30 mmol/L (20-30)
[2023-07-22 11:09] LABS: Blood Urea Nitrogen 24 mg/dL (9-23); Glucose 124 mg/dL (74-106)
[~2023-07-23] VITALS: Ht 190.5 cm; Wt 139.7 kg
[2023-07-23] VITALS (10 sets, daily range): BP systolic 90–111; BP diastolic 53–68; PULSE 66–69; RESP 11–19; TEMP 98; O2SAT 93–97
[~2023-07-23 07:59] MED LIST changes: -CHOL20007 PO; -MIDAZOLAM HCL 2MG/2ML 2ml VIAL (1mg/ml) ONE; -RIVA20TA PO; -TURM500C3 OR
[2023-07-23] MEDS ORDERED: fentaNYL CITRATE 100 MCG/2 ML VL ONE (10:16)
[2023-07-23] MEDS ORDERED: ANGIOMAX 250 MG VIAL IV ONE (10:16)
[2023-07-23] MEDS ORDERED: LIDOCAINE 2%HCL (LOCAL ANESTH.) INJ 20ML MDV ONE (10:17)
[2023-07-23] MEDS ORDERED: IOHEXOL 350 MG/ML 100ML IJ ONE ×2 (10:17→10:44)
[2023-07-23] MEDS ORDERED: MIDAZOLAM HCL 2MG/2ML 2ml VIAL (1mg/ml) ONE (10:17)
== END 2023-07-23 13:22 | disposition home or self-care (01) ==
LOC: CATH 07:59
PROVIDERS: ATTEND Internal Medicine Cardiovascular Disease
DX: I25.10 Atherosclerotic heart disease of native coronary artery without angina pectoris (principal); I25.810 Atherosclerosis of coronary artery bypass graft(s) without angina pectoris; Z95.1 Presence of aortocoronary bypass graft; Z79.899 Other long term (current) drug therapy
CPT/HCPCS: 36415; 80048; 85025; 85610; 85730; 93459; C1725; C1894; J1644; J2250; J3010; Q9967; 99152; 99153

== ENCOUNTER → 2023-12-18 | Outpatient (CLI) | payer MEDICARE, BC | END | disposition home or self-care (01) | LOC: Rad HDHVI 12:42 | PROVIDERS: ATTEND Internal Medicine Cardiovascular Disease | DX: I08.1 Rheumatic disorders of both mitral and tricuspid valves (principal); I11.9 Hypertensive heart disease without heart failure; R06.02 Shortness of breath | CPT/HCPCS: 93306 ==

== ENCOUNTER → 2023-12-29 | Outpatient (CLI) | payer MEDICARE, BC ==
[~2023-12-29] VITALS: Ht 190.5 cm; Wt 136.1 kg
== END | disposition home or self-care (01) ==
LOC: Rad HDHVI 12:50
PROVIDERS: ATTEND Internal Medicine Cardiovascular Disease
DX: I11.0 Hypertensive heart disease with heart failure (principal); I50.43 Acute on chronic combined systolic (congestive) and diastolic (congestive) heart failure; E78.00 Pure hypercholesterolemia, unspecified; E11.9 Type 2 diabetes mellitus without complications; Z82.49 Family history of ischemic heart disease and other diseases of the circulatory system; Z95.1 Presence of aortocoronary bypass graft; Z79.82 Long term (current) use of aspirin; Z79.899 Other long term (current) drug therapy
CPT/HCPCS: 78452; 93017; 96374; A9500

== ENCOUNTER → 2024-08-19 | Outpatient (CLI) | payer MEDICARE, BC ==
[~2024-08-19] MED LIST changes: -ATO40T PO; +ATOR-507 PO; +NEBI5TAB10 PO; -NEBI5TAB2 PO; +POTA-215 PO; -POTA1TAB61 PO
[2024-08-19 09:50] VITALS: BP 153/78; PULSE 66; RESP 16; O2SAT 96
[2024-08-19] MEDS: BUMETANIDE INJECTION 10 ML ONE (10:15)
[2024-08-19] MEDS: POTASSIUM CHL 20 Meq TABLET PO ONE ×2 (10:16→10:27)
[2024-08-19] MEDS: BUMETANIDE 2.5mg/10ml (0.25 mg/ml) INJ IV ONE (10:25)
[2024-08-19 10:46] VITALS: BP 144/84; PULSE 66; RESP 16; O2SAT 97
== END | disposition home or self-care (01) ==
LOC: CHF HDHVI 09:54
PROVIDERS: ATTEND Internal Medicine Cardiovascular Disease
DX: R60.9 Edema, unspecified (principal); E11.9 Type 2 diabetes mellitus without complications; E78.00 Pure hypercholesterolemia, unspecified; I10 Essential (primary) hypertension; Z79.899 Other long term (current) drug therapy
CPT/HCPCS: 96374; G0463

== ENCOUNTER → 2024-08-25 | Outpatient (CLI) | payer MEDICARE, BC | END | disposition home or self-care (01) | LOC: Rad HDHVI 13:48 | PROVIDERS: ATTEND Internal Medicine Cardiovascular Disease | DX: I50.23 Acute on chronic systolic (congestive) heart failure (principal); R07.9 Chest pain, unspecified | CPT/HCPCS: 93306 ==

== ENCOUNTER → 2024-09-05 | Outpatient (CLI) | payer MEDICARE, BC ==
[~2024-09-05] MED LIST changes: +TURM500C3 PO
[2024-09-05 09:10] VITALS: BP 146/72; PULSE 69; RESP 16; O2SAT 95
[2024-09-05 09:24] VITALS: BP 124/69; PULSE 70; RESP 16; O2SAT 95
== END | disposition home or self-care (01) ==
LOC: Rad HDHVI 08:52
PROVIDERS: ATTEND Internal Medicine Cardiovascular Disease
DX: Z01.818 Encounter for other preprocedural examination (principal); I25.10 Atherosclerotic heart disease of native coronary artery without angina pectoris; R06.02 Shortness of breath; I50.33 Acute on chronic diastolic (congestive) heart failure; M25.78 Osteophyte, vertebrae
CPT/HCPCS: 71046; 93005; G0463

== ENCOUNTER 2024-09-08 06:25 | Day surgery (SDC) | payer MEDICARE, BC ==
[2024-09-05 11:49] LABS: Basophils # (auto) 0.1 10 ^3/uL (0-0.2); Basophils % (auto) 0.7 % (0.0-2.0); Eosinophils # (auto) 0.3 10 ^3/uL (0-0.8); Eosinophils % (auto) 3.7 % (0.0-7.0); Hematocrit 39.3 % (41.0-53.0); Hemoglobin 13.3 g/dL (13.5-17.5); Lymphocytes # (auto) 1.7 10 ^3/uL (0.4-5.4); Lymphocytes % (auto) 21.7 % (10.0-50.0); Mean Corpuscular Hemoglobin 30.7 pg (28.0-32.0); Mean Corpuscular Hgb Conc. 33.8 g/dL (32.0-36.0); Mean Corpuscular Volume 90.8 fL (80.0-100.0); Monocytes # (auto) 0.8 10 ^3/uL (0-1.3); Monocytes % (auto) 10.2 % (0.0-12.0); Neutrophils % (auto) 63.7 % (37.0-80.0); Nucleated Red Blood Cells % 0.1 %; Platelet Count (auto) 172 10^3/uL (140-450); Red Blood Cells 4.33 10^6/uL (4.5-5.90); White Blood Cell 7.8 10^3/uL (4.4-10.8)
[2024-09-05 12:05] LABS: Anion Gap 6 (5-15); Carbon Dioxide 28 mmol/L (20-31); Chloride 105 mmol/L (98-107); Potassium 4.5 mmol/L (3.5-5.1); Sodium 139 mmol/L (136-145)
[2024-09-05 12:06] LABS: Calcium 9.4 mg/dL (8.7-10.4)
[2024-09-05 12:11] LABS: BUN/Creatinine Ratio 14.2 (10.0-20.0); Blood Urea Nitrogen 15 mg/dL (9-23); Glucose 105 mg/dL (74-106)
[2024-09-05 12:16] LABS: INR 1.42 (0.9-1.15); Partial Thromboplastin Time 35.7 SEC (24.5-34.5); Prothrombin Time 14.7 sec (9.3-11.8)
[~2024-09-08] VITALS: Ht 190.5 cm; Wt 143.8 kg
[2024-09-08] VITALS (8 sets, daily range): BP systolic 102–120; BP diastolic 58–72; PULSE 64–67; RESP 12–20; O2SAT 92–97
[~2024-09-08 06:25] MED LIST changes: -TOBR0.3S37 OP
[2024-09-08] MEDS ORDERED: IOHEXOL 350 MG/ML 100ML IJ ONE ×2 (08:45→09:37)
[2024-09-08] MEDS ORDERED: LIDOCAINE 2%HCL (LOCAL ANESTH.) INJ 20ML MDV ONE ×3 (08:45→11:20)
[2024-09-08] MEDS ORDERED: IODIXANOL 320MG/ML 100ML BTL IV ONE (09:07)
[2024-09-08] MEDS ORDERED: HEPARIN SODIUM (PORCINE) 5000 UNITS/ML 1ML VIAL ONE (09:36)
[2024-09-08] MEDS ORDERED: VERAPAMIL 2.5MG/ML INJ 2ML VIAL IV ONE (09:36)
[2024-09-08] MEDS ORDERED: MIDAZOLAM HCL 2MG/2ML 2ml VIAL (1mg/ml) ONE (09:37)
[2024-09-08] MEDS ORDERED: fentaNYL CITRATE 100 MCG/2 ML VL ONE (09:37)
[2024-09-08] MEDS ORDERED: ANGIOMAX 250 MG VIAL IV ONE (09:38)
[2024-09-08] MEDS ORDERED: SODIUM CHL 0.9% 0 ML ONE (09:38)
--- NOTE | 2024-09-08 12:25 | DVHHP ---
ADMIT DATE: 09/08/2024 HISTORY OF PRESENT ILLNESS: The patient is 73 years old with history of organic heart disease. * Coronary artery disease. * Coronary artery bypass surgery with AZUL to the LAD, saphenous vein graft to the OM, and saphenous vein graft to the PDA. The patient at this time having diminished left ventricular ejection fraction with mild chest pain and because of the above presentation, it was felt that the patient should undergo angiography. PERTINENT MEDICAL HISTORY: Significant for history of mediastinitis, post-coronary artery bypass grafting and now had a protracted length of treatment with debridement. Finally, the patient is disease free or infection free. REVIEW OF SYSTEMS: He denies any fever or chills. No melena or hematochezia. No hematemesis or hemoptysis. No history of bleeding diathesis. Denies any inflammatory bowel disease or irritable bowel syndrome. Denies any COPD. No history of tobacco use. No history of anxiety. No palpitations. No neurological symptoms, are all within normal limits. PHYSICAL EXAMINATION: VITAL SIGNS: Blood pressure is 138/80, pulse of 70 and regular, O2 saturation 98% on room air. HEENT: Pupils are reactive. Funduscopic exam is benign. Sclerae anicteric. No exudates noted. No AV nicking noted. No papilledema. Tympanic membranes are negative. Oral mucosa moist. Posterior pharynx without any exudate. NECK: Supple. Carotid pulses are 2+ symmetrical. No nuchal rigidity. No supraclavicular adenopathy, no axillary adenopathy. Normal upstroke and contour. PULMONARY: Clear to auscultation. Tympanic to percussion. No rhonchi, no wheezes, no egophony. CARDIOVASCULAR: Regular rate. PMI is not palpable. ABDOMEN: Obese. Unable to appreciate organomegaly. Stool guaiac is negative. NEUROLOGIC: The patient is intact. DIAGNOSTIC DATA: EKG does not show any acute changes. ASSESSMENT AND PLAN: Thus, the patient is morbidly obese, had coronary artery bypass grafting, now with diminished left ventricular ejection fraction by echocardiography. Therefore, the patient is now to undergo coronary angiography. Furthermore, he is having intermittent episodes of chest pain as well. Garo Arguello MD SA/YEHUDA TID: [id number] RECEIPT: [id number]
--- NOTE | 2024-09-08 13:44 | DVHOP ---
DATE OF SURGERY: 09/08/2024 PROCEDURES PERFORMED: * Left and right heart catheterization. * Ventriculogram. * Angiography of the saphenous vein graft. * Angiography of the left subclavian and left internal mammary artery. * Angiography of the left radial artery. INDICATIONS: Since the patient with coronary artery disease and the patient is morbidly obese, it is felt that best option was to go through the left wrist. However, right groin approach is finally undertaken. There were no complications. The patient tolerated the procedure well. The patient had conscious sedation as well. DESCRIPTION OF PROCEDURE: The patient was prepped and draped in a sterile condition. 1% Xylocaine used to anesthetize the left wrist. Using a micropuncture needle, left radial artery was cannulated via Seldinger technique, a 6-Bengali sheath into the left radial artery. Using a JL4 diagnostic catheter and upsizing to JL4.5, we were still not able to cannulate the left main with a left wrist approach. Following several attempts and because of excessive radiation exposure, we left radial approach for right groin approach. We used a JL4 catheter and JR4 catheter for angiography of the left main, saphenous vein grafts as well as subclavian and the carotid. There were no complications. The patient tolerated the procedure well. RESULTS: * Left main patent. * Left anterior descending artery is occluded. * Circumflex was occluded. * Right coronary artery was occluded after the first branching of the marginal branch. * Saphenous vein graft to the RCA was patent. * AZUL to the LAD was patent and was sequenced to the first diagonal. * Occluded circumflex with occluded saphenous vein graft to the OM as well. Left ventricular function was around 50% with an LVEDP of 20 mmHg with no gradient across the aortic valve. Thus, the patient underwent successful angiography of the coronary artery. At this time, no intervention is required. The patient's ejection fraction is relatively preserved. The patient is not having any symptoms at this time. The conservative medical management dual antiplatelet therapy should be considered. Otherwise, no catheter-based or surgical interventions warranted. Garo Arguello MD SA/DEYSI/YEHUDA/KELLY TID: [id number] RECEIPT: [id number]
--- NOTE | 2024-09-08 16:02 | DVHDS ---
DATE OF DISCHARGE: 09/08/2024 DISCHARGE DIAGNOSES: 1. Status post coronary angiography. 2. History of coronary artery disease status post coronary artery bypass grafting. HOSPITAL COURSE: Clinically, the patient is stable. Stable at the time of discharge. DISPOSITION: Home. ACTIVITY: As instructed. DIET: Will be 2 gram sodium diet. Garo Arguello MD SA/DEYSI TID: [id number] RECEIPT: [id number]
== END 2024-09-08 13:22 | disposition home or self-care (01) ==
LOC: CATH 06:25
PROVIDERS: ATTEND Internal Medicine Cardiovascular Disease
DX: I25.810 Atherosclerosis of coronary artery bypass graft(s) without angina pectoris (principal); I11.0 Hypertensive heart disease with heart failure; I50.20 Unspecified systolic (congestive) heart failure; E66.01 Morbid (severe) obesity due to excess calories; Z68.39 Body mass index [BMI] 39.0-39.9, adult; Z95.1 Presence of aortocoronary bypass graft; Z98.890 Other specified postprocedural states
CPT/HCPCS: 36415; 80048; 85025; 85610; 85730; 93459; C1760; C1769; C1894; J1644; J2250; J3010; Q9967; 99152; 99153

== ENCOUNTER 2025-04-21 12:50 | Outpatient (CLI) | payer MEDICARE, BC | END 2025-04-21 17:00 | disposition home or self-care (01) | LOC: Rad HDHVI 12:50 | PROVIDERS: ATTEND Internal Medicine Cardiovascular Disease | DX: I11.0 Hypertensive heart disease with heart failure (principal); I50.9 Heart failure, unspecified | CPT/HCPCS: 93306 ==